=== PATIENT | male | born 1980 | race Caucasian/White ===

== ENCOUNTER 2024-08-25 11:19 | Emergency (ER) | payer BC, SELFPAY ==
--- NOTE | ~2024-08-25 | XR_ITS ---
XR chest 2V DATE: 08/25/2024 12:17 INDICATION: Cough and wheezing for 2 to 3 weeks TECHNIQUE: PA and lateral views COMPARISON: None FINDINGS: Normal heart size. No hilar or mediastinal enlargement. Bilateral hyperinflation. No pulmonary infiltrate or consolidation, pleural effusion or pulmonary vascular congestion or pneumo thorax is detected. Included skeletal structures are unremarkable other than old healed anterolateral right third and fif th rib fracture deformities. IMPRESSION: Bilateral hyperinflation; otherwise no active cardiopulmonary disease Reviewed, dictated and finalized at location A. [employer] IMPRESSION: Bilateral hyperinflation; otherwise no active cardiopulmonary disea se
--- NOTE | 2024-08-25 11:31 | ED.GENADULT ---
HPI - General Adult General Chief complaint: Upper Respiratory Infection Stated complaint: chest congestion Time Seen by Provider: 08/25/24 11:31 Source: patient Mode of arrival: ambulatory Limitations: no limitations History of Present Illness HPI narrative: 43-year-old male patient presents to the [facility] with complaints of a cough for the last 2-3 weeks. Patient states he feels like he has been coughing so hard that he has been having some lateral chest pain on inspiration with breathing. Patient states that he did wake up last week with some night sweats and chills and feels like he was running a fever but never took his temperature. Patient denies any ear pain or sore throat at this time. Patient states he has had some shortness of breath at times no current Midsternal chest pain at this time. patient states he has been taking some [id number] DayQuil and NyQuil for his symptoms. Related Data Home Medications ?Medication ?Instructions ?Recorded ?Confirmed ?Last Taken ?Type No Home Medications 08/25/24 08/25/24 Unknown History Allergies Allergy/AdvReac Type Severity Reaction Status Date / Time No Known Allergies Allergy Verified 08/25/24 11:39 Review of Systems Review of Systems: CONSTITUTIONAL: Positive fever, chills, and sweats. EYES: Denies visual changes, redness, or discharge. ENT: Denies rhinorrhea, congestion, sore throat, or otalgia. CARDIOVASCULAR: positive lateral chest pain, denies palpitations, or edema. RESPIRATORY: positive cough with intermittent dyspnea. GASTROINTESTINAL: Denies abdominal pain, nausea, vomiting, or diarrhea. GENITOURINARY: Denies dysuria or hematuria. SKIN: Denies rash or itching. MUSCULOSKELETAL: Denies back pain, joint pain, or myalgia. NEUROLOGIC: Denies headache, numbness, or weakness. PSYCHIATRIC: Denies anxiety or depression. [facility] Past Medical History Medical History (Updated 08/25/24 @ 12:48 by MAHESH Mcfarlane) Fracture of thumb, left, closed Family History Family History Mother Family history of diabetes mellitus in first degree relative Other Diabetes mellitus Comments At the time of my signature I agree with nursing past medical history, surgical, social, and family history. There is no relevant family history pertinent to the presenting complaint. Exam Narrative: GENERAL: Well-appearing, well-nourished, and in no acute distress. HEAD: Normocephalic, atraumatic. EYES: PERRLA and EOMI. ENT: Nares clear, no rhinorrhea or epistaxis. Mucous membranes moist. posterior pharynx with no erythema, tonsillar enlargement, exudates or lesions present. Bilateral TMs are clear there are some cerumen noted to bilateral canals. NECK: Supple. No lymphadenopathy CHEST: Patient does have some inspiratory wheezing noted to bilateral lower lobes. No respiratory distress. patient able talk clear complete sentences no tripoding noted. HEART: Regular rate and rhythm. No murmur heard. Normal peripheral pulses. ABDOMEN: Soft, nontender, nondistended, normal active bowel sounds. EXTREMITIES: Normal range of motion. No edema. SKIN: Warm, dry, no rash. NEURO: No focal deficits. Alert and oriented x3. Course Course Level of Care: Express Care Visit Reevaluation(s) Reevaluation #1: re-evaluated patient after breathing treatment. Patient's lungs are clear to bilateral upper lower lobes. Patient states he coughed a few times after the treatment but does feel like he can take a bigger deeper breath. Discussed with patient that his x-rays negative for any acute pneumonia we will discharge him home with oral steroids, inhaler and Tessalon Perles for the cough and highly encourage that he tries to quit smoking. Patient verbalized understanding denies any other questions or concerns at this time. Date: 08/25/24 Time: 12:52 Vital Signs Vital signs: Vital Signs Temperature 37.1 C 08/25/24 11:44 Pulse Rate 98 08/25/24 11:44 Respiratory Rate 16 08/25/24 11:44 Blood Pressure 126/80 08/25/24 11:44 Pulse Oximetry 98 08/25/24 11:44 Oxygen Delivery Room Air 08/25/24 11:44 Temperature 37.1 C 08/25/24 11:44 Pulse Rate 102 H 08/25/24 12:35 Respiratory Rate 20 08/25/24 12:35 Blood Pressure 126/80 08/25/24 11:44 Pulse Oximetry 98 08/25/24 12:35 Oxygen Delivery Room Air 08/25/24 11:44 Medical Decision Making [facility] Narrative Medical decision making narrative: Plan care for patient is to x-ray the chest to rule out any since he has been reporting night sweats and possible low-grade fevers. We will also provide him a breathing treatment to help with the bilateral lower lobe wheezing to see if this improves Differential Diagnosis Differential Diagnosis: differential diagnosis: Allergic rhinitis, chronic sinusitis, tonsillitis, acute sinusitis, infectious mononucleosis, seasonal influenza, pertussis, diphtheria, meningococcal disease, viral syndrome, viral bronchitis, RSV, COVID-19 Vital Signs Vital Signs: Vital Signs Temperature 37.1 C 08/25/24 11:44 Pulse Rate 98 08/25/24 11:44 Respiratory Rate 16 08/25/24 11:44 Blood Pressure 126/80 08/25/24 11:44 Pulse Oximetry 98 08/25/24 11:44 Oxygen Delivery Room Air 08/25/24 11:44 Temperature 37.1 C 08/25/24 11:44 Pulse Rate 102 H 08/25/24 12:35 Respiratory Rate 20 08/25/24 12:35 Blood Pressure 126/80 08/25/24 11:44 Pulse Oximetry 98 08/25/24 12:35 Oxygen Delivery Room Air 08/25/24 11:44 Imaging Data Radiologist's impression: [place] [address] XRay Report Signed Patient: Db Feliz : 1980 MR#: [id number] Age: 43 Acct:[id number] Loc: [facility] ADM Date: 08/25/24Attending Dr: Ordering Physician: Cathi Lindsey APRN Date of Service: 08/25/24 Procedure(s): XR chest 2V Accession Number(s): [id number] cc: [employer] FI[employer] CONSULTANT PHYSICIAN; Cathi Lindsey APRN~ XR chest 2V DATE: 08/25/2024 12:17 INDICATION: Cough and wheezing for 2 to 3 weeks TECHNIQUE: PA and lateral views COMPARISON: None FINDINGS: Normal heart size. No hilar or mediastinal enlargement. Bilateral hyperinflation. No pulmonary infiltrate or consolidation, pleural effusion or pulmonary vascular congestion or pneumothorax is detected. Included skeletal structures are unremarkable other than old healed anterolateral right third and fifth rib fracture deformities. IMPRESSION: Bilateral hyperinflation; otherwise no active cardiopulmonary disease Reviewed, dictated and finalized at location A. SUR[employer]ING INSTRUCTOR Please be advised this is a medical document. It is intended for [id number] communication. It is written in medical language and may contain unfamiliar abbreviations or verbiage. Medical documents are intended to carry relevant information, facts as evident, and the clinical opinion of the practitioner at the time of the encounter. This report may have been done utilizing a voice recognition system. Attempts have been made to correct errors. However, there may be uncorrected grammatical, spelling, and recognition errors present. The file time of this note does not necessarily represent the time the patient was seen. Dictated By: Kang Rowell MD 08/25/24 1241 Signed By: <Electronically signed by Kang Rowell MD in OV> Discharge Plan Discharge Clinical Impression: Bronchitis, Viral URI with cough Patient Disposition: Home, Self-Care Condition: Stable Instructions: Antibiotic Form, Acute Bronchitis (ED) Additional Instructions: Viral illness may last between 7-12days; antibiotic is NOT recommended at this time. Recommend antihistamine such as Benadryl at night time and Claritin/Zyrtec/Pam during the day Cough syrup may cause drowsiness; avoid driving or take it at night time. Use inhaler as needed for cough, wheezing, shortness of breath or chest tightness. Also, recommend symptomatic treatment includes: rest, fluids, and increase humidity of the air at home. Recommend Acetaminophen or nonsteroidal anti-inflammatory agents (NSAIDs) as directed in the bottle to reduce fever and/pain/headache. Avoid smoking/second-hand smoke. Limit visits to areas with large crowds. Please schedule a follow-up visit with your personal physician for further evaluation and treatment within 3-5days. Including recheck and discussion of your blood pressure. If your symptoms persist, change or worsen significantly before you can contact your personal physician then please, without delay, go to the emergency department for further evaluation. Patient Language: [place] Prescriptions: New benzonatate 200 mg capsule 200 mg PO TID PRN (Reason: cough) 10 Days Qty: 30 0RF prednisone 20 mg tablet 40 mg PO DAILY 5 Days Qty: 10 0RF albuterol sulfate [Ventolin HFA] 90 mcg/actuation HFA aerosol inhaler 2 puff INHALATION .Q4 hours PRN (Reason: cough) Qty: 18 0RF No Action No Home Medications Follow-up/Referrals: PHYSICIAN,FRANCHISE FIELD CONSULTANT [Primary Care Provider] - Time of Disposition: 12:49
[2024-08-25 11:44] VITALS: BP 126/80; PULSE 98; RESP 16; TEMP 37.1; O2SAT 98
[2024-08-25 12:15] VITALS: PULSE 92; RESP 18; O2SAT 98
[2024-08-25] MEDS: IPRATROPIUM 0.5 MG/ALBUTEROL SULFATE 2.5 MG AMPUL.NEB 3 ML INHALATION (12:20)
[2024-08-25 12:35] VITALS: PULSE 102; RESP 20; O2SAT 98
== END 2024-08-25 12:51 | disposition home or self-care (01) ==
PROVIDERS: Emergency Provider Nurse Practitioner Family; Referring Provider Emergency Medicine
DX: J40 Bronchitis, not specified as acute or chronic (principal); J06.9 Acute upper respiratory infection, unspecified
CPT/HCPCS: 71046; 94640; 99213; G0463

== ENCOUNTER 2025-02-24 13:27 | Inpatient (IN) | payer BC, MEDICAID, SELFPAY ==
[2025-02-24] VITALS (14 sets, daily range): BP systolic 96–134; BP diastolic 64–95; PULSE 99–116; RESP 12–28; TEMP 36.8; O2SAT 94–99
--- NOTE | ~2025-02-24 | CT_ITS ---
EXAMINATION: CT abdomen pelvis w con DATE: 02/24/2025 16:14 INDICATION: abdominal pain TECHNIQUE: Computed tomography (CT) of the abdomen and pelvis was performed with 100 mL Omnipaque-350 intravenous contrast. Automated exposure control and iterative reconstruction technique were employe d. The dose-length product was 325.52 mGy-cm. COMPARISON: None. FINDINGS: Lower thorax: Bilateral dependent atelectasis/scar. Liver: Nodular liver border. Multiple heterogeneous liver lesions with capsular versus thin rim enhan cement, measuring up to 5.5 cm. Apparent tumor invasion and small adjacent thrombus in the right port al vein branches extending to the junction with the right main portal vein. Biliary/Gallbladder: Pericholecystic fluid, nonspecific finding in the setting of liver disease. No s tones. No bile duct dilation. Pancreas: No mass or duct dilation. Spleen: Normal. Adrenals:No mass. Kidneys: No suspicious mass, obstructing stone, or hydronephrosis. Subcentimeter bilateral hypodensit ies, too small to characterize but most likely represent cysts. GI tract: Moderate distal esophageal wall thickening. Mild gastric wall edema. No small or large briseyda l dilation. Normal appendix. Diverticulosis without diverticulitis. Mesentery/Peritoneum: Moderate volume simple ascitic fluid. No free air or mass is detected. Retroperitoneum: No mass. Pelvis: Pelvic organs are within normal limits. Soft Tissues: Small fat and fluid containing umbilical hernia. Bones: No acute osseous finding. IMPRESSION: Cirrhosis. Multiple liver lesions concerning for malignancy. Likely tumor invasion in the right leland l vein branches with small focus of portal vein thrombus. Esophagitis/gastritis. Moderate volume asci stuart. Reviewed, dictated and finalized at location K. IMPRESSION: Cirrhosis. Multiple liver lesions concerning for malignancy. Likely tumor invas ion in the right portal vein branches with small focus of portal vein thrombus. Esophagitis/gastritis. Moderate volume ascites.
--- NOTE | ~2025-02-24 | MR_ITS ---
MRI of the abdomen: Clinical indication: Liver mass Technique: Coronal SSFSE ARC, WATER:coronal LAVA-FLEX, Coronal 2D FIESTA FatSat, Axial SSFSE BH ARC, Axial 3D DualEcho BH, Axial SSFSE-IR, Axial DWI b=500, Axial 2D FIESTA FatSat, pre and dynamic postco ntrast Axial LAVA ARC, postcontrast Coronal In and Opposed phase LAVA FLEX. Following intravenous adm inistration of 12 cc MultiHance gadolinium, T1-weighted fat-sat imaging was performed in the axial an d coronal planes. Comparison made with prior CT scan is dated 02/24/2025. Findings: There is background diffuse nodular contour of the liver, compatible with cirrhotic change. There is an irregular/lobulated mass towards the dome of liver measuring up to approximately 7.6 x 5 .0 x 6.8 cm in overall extent, with focal direct extension into the right portal vein. Lesion is curr ently T2 isointense with focal hyperintensity, and mildly T1 hypointense. There is no no definite cla ssic hypervascular enhancement pattern, but more heterogeneous hypoenhancement overall, however given cirrhotic morphology, hepatocellular carcinoma remains in the differential diagnosis. Gallbladder demonstrates mild wall thickening but no evidence of gallstone. Spleen, pancreas, adrenal glands, and kidneys are unremarkable. No lymphadenopathy seen. No aortic aneurysm. There is moderate to large amount of ascites in the abdomen/pelvis. Impression: 7.6 x 5.0 x 6.8 cm irregular mass in the liver with direct invasion/extension into the right portal v ein (compatible with tumor thrombus). This is suspicious for hepatocellular carcinoma given backgroun d cirrhotic change of the liver versus other neoplastic disease. Consider tissue sampling. Correlate with serum alpha-fetoprotein level. Moderate to large amount of abdominopelvic ascites. Gallbladder wall thickening is probably reactive due to the presence of ascites. Reviewed, dictated and finalized at location . Impression: 7.6 x 5.0 x 6.8 cm irregular mass in the liver with direct invasion/extension i nto the right portal vein (compatible with tumor thrombus). This is suspicious for hepatocellular carcinoma given background cirrhotic change of the liver britton yuniel other neoplastic disease. Consider tissue sampling. Correlate with serum al pha-fetoprotein level. Moderate to large amount of abdominopelvic ascites. Gallbladder wall thickening is probably reactive due to the presence of ascites .
--- NOTE | ~2025-02-24 | US_ITS ---
ULTRASOUND-GUIDED PARACENTESIS INDICATION: Ascites. COMPARISON: Reference is made to an MRI examination of the abdomen performed on 02/28/2025. TECHNIQUE/FINDINGS: All risks, benefits, and alternatives of this procedure were thoroughly discussed with the patient an d all questions were answered. The time out procedure was performed and the patient was properly shantell ntified. Sonographic evaluation of the abdomen demonstrated scattered intra-abdominal ascites, with the larges t pocket in the right mid to lower abdomen. Following local analgesia with 1% lidocaine, a centesis catheter was inserted into the right peritone al cavity, and the needle was removed. 650cc of tea-colored fluid was collected for analysis. The abd omen was drained in its entirety. The catheter was then removed and a sterile dressing applied. The p atient tolerated the procedure without difficulty and was returned to the floor in stable condition. Limited ultrasound examination of the portal vein demonstrated not only reversal of flow, but early c avernous transformation. The mass detected on CT and MRI examination was not visualized on the curren t study, secondary to its subdiaphragmatic location. Impression: 1. Technically successful ultrasound guided right sided paracentesis yielding 650 cc of tea-colored ascites, which was sent for the requested studies. 2. No immediate complications. Reviewed, dictated and finalized at location A. Impression: 1. Technically successful ultrasound guided right sided paracentesis yielding 650 cc of tea-colored ascites, which was sent for the requested studies. 2. No immediate complications.
--- NOTE | ~2025-02-24 | US_ITS ---
Abdominal Sonogram: Real-time sonographic imaging of the abdomen was performed. 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 Hypoechoic mass toward s the dome the liver measures approximately 6.0 x 4.0 x 5.0 cm. No definite evidence for cavernous tr ansformation of the portal vein, but there is reversal the normal direction of flow. The spleen is up per limits of normal in size without evidence of focal lesion. The gallbladder is well distended, an d demonstrates diffuse gallbladder wall thickening without evidence of gallstone. The common bile quan t is not well seen. The visualized pancreas, aorta, and IVC are unremarkable. The right kidney yao ures 11.1 cm in length and the left kidney measures 11.9 cm. There is no hydronephrosis or renal seven culus. Moderate to large amount of abdominal ascites present. Impression: Cirrhotic liver with 6.0 x 4.0 x 5.0 cm hypoechoic mass towards the dome, compatible with hepatocellu lar carcinoma versus other neoplastic lesion. Reversal of normal direction of flow in the main portal vein. Gallbladder wall thickening is probably related to the presence of moderate to large amount of abdomi nal ascites. No gallstone evident. Reviewed, dictated and finalized at location . Impression: Cirrhotic liver with 6.0 x 4.0 x 5.0 cm hypoechoic mass towards the dome, bonita tible with hepatocellular carcinoma versus other neoplastic lesion. Reversal of normal direction of flow in the main portal vein. Gallbladder wall thickening is probably related to the presence of moderate to large amount of abdominal ascites. No gallstone evident.
--- NOTE | 2025-02-24 15:26 | ED_ITS ---
HPI - General Adult General Chief complaint: Abdominal Pain <Yaz Bender - Last Filed: 02/24/25 19:21> Stated complaint: abd issues <Yaz Sam December, - Last Filed: 02/24/25 19:21> Time Seen by Provider: 02/24/25 14:56 <Yaz Sam December, - Last Filed: 02/24/25 19:21> History of Present Illness HPI narrative: Db Feliz is a 44 y/o male who presents today with reports of feeling like his umbilical hernia is pushing out more then normal, he states that he has had some mild lower umbilical cramping over the past week or so. Denies nausea/vomiting/ denies testicular pain. States he is eating and drinking well. Reports hx of Hep C. Last normal BM was yesterday <Yaz Sam December,N - Last Filed: 02/24/25 19:21> Related Data Home medications: Home Medications ?Medication ?Instructions ?Recorded ?Confirmed ?Last Taken ?Type No Home Medications 08/25/24 08/25/24 Unknown History <Yaz Sam December, - Last Filed: 02/24/25 19:21> Allergies/adverse reactions: Allergies Allergy/AdvReac Type Severity Reaction Status Date / Time No Known Allergies Allergy Verified 02/24/25 13:35 <Yaz Sam December, - Last Filed: 02/24/25 19:21> Review of Systems 2 Review of Systems: All systems reviewed & are unremarkable except as noted in HPI and below <Yaz Sam December, - Last Filed: 02/24/25 19:21> PMFSH Past Medical History Medical History: Medical History Fracture of thumb, left, closed <Yaz Sam December,N - Last Filed: 02/24/25 19:21> Family History Family History: Family History Mother Family history of diabetes mellitus in first degree relative Other Diabetes mellitus <Yaz Bender, DIESEL MAINTENANCE TECHNICIAN - Last Filed: 02/24/25 19:21> Exam 2 Narrative: GENERAL: Well-appearing, well-nourished, and in no acute distress. HEAD: Normocephalic, atraumatic. EYES: PERRLA and EOMI. ENT: Nares clear, no rhinorrhea or epistaxis. Mucous membranes moist. Oropharynx without tonsillar hypertrophy exudate or other lesions. NECK: Supple. No adenopathy or masses. No carotid bruits or JVD CHEST: Clear to auscultation. No respiratory distress. No wheezes rales or rhonchi HEART: Regular rate and rhythm. No murmur heard. Normal peripheral pulses. ABDOMEN: Distended, bowel sounds present no real tenderness with palpation EXTREMITIES: Normal range of motion. No edema. SKIN: Warm, dry, no rash. NEURO: No focal deficits. Alert and oriented x3. PSYCH: Normal mood and affect. <Yaz Bender APRN - Last Filed: 02/24/25 19:21> Course Course Emergency Course: Patient signed out to ut pending transfer to [facility]. No events during my shift. Patient handed off to Dr. Wise pending bed assignment. <Elizabeth Mustafa PA-C - Last Filed: 02/25/25 01:45> Patient signed out to ut pending transfer to [facility]. No events during my shift. Patient handed off to Dr. Wise pending bed assignment. 0: Dr Temple: Patient care transitioned over to ut by previous provider at 7:00 p.m. 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 Patient remains hemodynamically stable without any acute concerns here during the duration of my shift. Patient care signed over to oncoming ER physician Dr. Phelan at 7:00 a.m. pending bed assignment and transfer to [facility]. 02/27: Patient care assumed from previous provider still pending bed assignment at [facility]. Patient remains hemodynamically stable with no acute changes in clinical status. Patient care signed over to oncoming ER physician pending transfer. <Johnny Temple MD - Last Filed: 02/27/25 06:53> ELECTRICAL HARDWARE ENGINEER/PA Physician Supervision I agree with midlevel documentation; I performed the medical decision making component of this evaluation. Patient with new dx likely HCC from known HCV, GI here recommends tfr to tertiary care, [facility] hepatology/hospitalist accept pending bed. <Sue Trivedi MD - Last Filed: 02/25/25 09:15> Vital Signs Vital signs: Vital Signs Temperature 36.8 C 02/24/25 13:32 Pulse Rate 116 H 02/24/25 13:32 Respiratory Rate 20 02/24/25 13:32 Blood Pressure 123/85 02/24/25 13:32 Pulse Oximetry 99 02/24/25 13:32 Oxygen Delivery Room Air 02/24/25 13:32 Temperature 36.7 C 02/26/25 17:04 Pulse Rate 90 02/27/25 04:22 Respiratory Rate 16 02/27/25 04:22 Blood Pressure 99/62 L 02/27/25 04:22 Pulse Oximetry 99 02/27/25 04:22 Oxygen Delivery Room Air 02/24/25 13:32 <Yaz Bender APRN - Last Filed: 02/24/25 19:21> Vital Signs Temperature 36.8 C 02/24/25 13:32 Pulse Rate 116 H 02/24/25 13:32 Respiratory Rate 20 02/24/25 13:32 Blood Pressure 123/85 02/24/25 13:32 Pulse Oximetry 99 02/24/25 13:32 Oxygen Delivery Room Air 02/24/25 13:32 Temperature 36.7 C 02/26/25 17:04 Pulse Rate 90 02/27/25 04:22 Respiratory Rate 16 02/27/25 04:22 Blood Pressure 99/62 L 02/27/25 04:22 Pulse Oximetry 99 02/27/25 04:22 Oxygen Delivery Room Air 02/24/25 13:32 <Elizabeth Mustafa PA-C - Last Filed: 02/25/25 01:45> Vital Signs Temperature 36.8 C 02/24/25 13:32 Pulse Rate 116 H 02/24/25 13:32 Respiratory Rate 20 02/24/25 13:32 Blood Pressure 123/85 02/24/25 13:32 Pulse Oximetry 99 02/24/25 13:32 Oxygen Delivery Room Air 02/24/25 13:32 Temperature 36.7 C 02/26/25 17:04 Pulse Rate 90 02/27/25 04:22 Respiratory Rate 16 02/27/25 04:22 Blood Pressure 99/62 L 02/27/25 04:22 Pulse Oximetry 99 02/27/25 04:22 Oxygen Delivery Room Air 02/24/25 13:32 <Tino Wise MD - Last Filed: 02/25/25 06:58> Vital Signs Temperature 36.8 C 02/24/25 13:32 Pulse Rate 116 H 02/24/25 13:32 Respiratory Rate 20 02/24/25 13:32 Blood Pressure 123/85 02/24/25 13:32 Pulse Oximetry 99 02/24/25 13:32 Oxygen Delivery Room Air 02/24/25 13:32 Temperature 36.7 C 02/26/25 17:04 Pulse Rate 90 02/27/25 04:22 Respiratory Rate 16 02/27/25 04:22 Blood Pressure 99/62 L 02/27/25 04:22 Pulse Oximetry 99 02/27/25 04:22 Oxygen Delivery Room Air 02/24/25 13:32 <Sue Trivedi MD - Last Filed: 02/25/25 09:15> Vital Signs Temperature 36.8 C 02/24/25 13:32 Pulse Rate 116 H 02/24/25 13:32 Respiratory Rate 20 02/24/25 13:32 Blood Pressure 123/85 02/24/25 13:32 Pulse Oximetry 99 02/24/25 13:32 Oxygen Delivery Room Air 02/24/25 13:32 Temperature 36.7 C 02/26/25 17:04 Pulse Rate 90 02/27/25 04:22 Respiratory Rate 16 02/27/25 04:22 Blood Pressure 99/62 L 02/27/25 04:22 Pulse Oximetry 99 02/27/25 04:22 Oxygen Delivery Room Air 02/24/25 13:32 <Johnny Temple MD - Last Filed: 02/27/25 06:53> Medical Decision Making MDM Narrative Medical decision making narrative: 44 year old presents today with complaints of feeling that his umbilical hernia is sticking out more than normal denies any fevers or chills denies nausea vomiting states he is having normal bowel movements denies changes to urination no testicular pain. He also states he is having some more lower abdominal cramping that he normally does. On exam he has some abdominal distention that is present patient states that this is his normal abdomen and that it does usually look large and sticks out does not feel like it is any larger then his normal No real pain with palpation + bowel sounds CBC-no leukocytosis, hemodynamically stable CMP-sodium 136, BUN 6, creatinine 0.70, total bilirubin 1.7 normal, AST 161, ALT 140, alk phos 176, total protein 9.5 PT 16.4 INR 1.3 PTT 33.9 UA-trace ketones MELD score 11 CT abdomen pelvis-Cirrhosis. Multiple liver lesions concerning for malignancy. 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 Esophagitis/gastritis. Moderate volume ascites. Patient updated on labs and imaging findings, I let them know that I will consult with our GI specialist here for further direction of what we need to do. Consult with our GI specialist Dr. Leonard here who based on the CT findings he is recommending patient be transferred to a hospital with hepatology such as [facility] Spoke to Side Panel Padder Dr. Palacios at 17:45 at [facility] who recommends transferring pt for further work up and recommends admitting to Medicine hospitalist, waiting for a call back Spoke to go hospitalist at [facility] Dr. Heath who accepts patient for transfer with hepatology consult. Transfer line states that it might be 1-2 days before the bed is available I discussed this with the patient and his mom, pt has a lot of strong emotions and at first is wanting to leave and he will figure out when he wants to follow up, he and his mom discussed more in private and they have have decided to stay and wait for the admission bed at [facility] Patient is wanting to go outside to smoke and pt is informed that he cannot smoke and will give him a nicotine patch and provide him with a 0.5 mg dose of PO Ativan while he waits Handed pt off to Elisabeth Mustafa pending admission bed at [facility] <Yaz Bender, DIESEL MAINTENANCE TECHNICIAN - Last Filed: 02/24/25 19:21> 44 year old presents today with complaints of feeling that his umbilical hernia is sticking out more than normal denies any fevers or chills denies nausea vomiting states he is having normal bowel movements denies changes to urination no testicular pain. He also states he is having some more lower abdominal cramping that he normally does. On exam he has some abdominal distention that is present patient states that this is his normal abdomen and that it does usually look large and sticks out does not feel like it is any larger then his normal No real pain with palpation + bowel sounds CBC-no leukocytosis, hemodynamically stable CMP-sodium 136, BUN 6, creatinine 0.70, total bilirubin 1.7 normal, AST 161, ALT 140, alk phos 176, total protein 9.5 PT 16.4 INR 1.3 PTT 33.9 UA-trace ketones MELD score 11 CT abdomen pelvis-Cirrhosis. Multiple liver lesions concerning for malignancy. 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 Esophagitis/gastritis. Moderate volume ascites. Patient updated on labs and imaging findings, I let them know that I will consult with our GI specialist here for further direction of what we need to do. Consult with our GI specialist Dr. Leonard here who based on the CT findings he is recommending patient be transferred to a hospital with hepatology such as [facility] Spoke to Side Panel Padder Dr. Palacios at 17:45 at [facility] who recommends transferring pt for further work up and recommends admitting to Medicine hospitalist, waiting for a call back Spoke to go hospitalist at [facility] Dr. Heath who accepts patient for transfer with hepatology consult. Transfer line states that it might be 1-2 days before the bed is available I discussed this with the patient and his mom, pt has a lot of strong emotions and at first is wanting to leave and he will figure out when he wants to follow up, he and his mom discussed more in private and they have have decided to stay and wait for the admission bed at [facility] Patient is wanting to go outside to smoke and pt is informed that he cannot smoke and will give him a nicotine patch and provide him with a 0.5 mg dose of PO Ativan while he waits Handed pt off to Elisabeth Mustafa pending admission bed at [facility]. Patient signed out to me pending transfer at [facility]. Patient resting comfortably. Did call nick for an update, patient is 19. On the wait list for a bed. <Tino Wise MD - Last Filed: 02/25/25 06:58> Medical Records Medical records reviewed: Yes I reviewed the external patient's medical records. <Yaz Bender, DIESEL MAINTENANCE TECHNICIAN - Last Filed: 02/24/25 19:21> Vital Signs Vital Signs: Vital Signs Temperature 36.8 C 02/24/25 13:32 Pulse Rate 116 H 02/24/25 13:32 Respiratory Rate 20 02/24/25 13:32 Blood Pressure 123/85 02/24/25 13:32 Pulse Oximetry 99 02/24/25 13:32 Oxygen Delivery Room Air 02/24/25 13:32 Temperature 36.7 C 02/26/25 17:04 Pulse Rate 90 02/27/25 04:22 Respiratory Rate 16 02/27/25 04:22 Blood Pressure 99/62 L 02/27/25 04:22 Pulse Oximetry 99 02/27/25 04:22 Oxygen Delivery Room Air 02/24/25 13:32 Vitals reviewed by ut <Yaz Bender, DIESEL MAINTENANCE TECHNICIAN - Last Filed: 02/24/25 19:21> Vital Signs Temperature 36.8 C 02/24/25 13:32 Pulse Rate 116 H 02/24/25 13:32 Respiratory Rate 20 02/24/25 13:32 Blood Pressure 123/85 02/24/25 13:32 Pulse Oximetry 99 02/24/25 13:32 Oxygen Delivery Room Air 02/24/25 13:32 Temperature 36.7 C 02/26/25 17:04 Pulse Rate 90 02/27/25 04:22 Respiratory Rate 16 02/27/25 04:22 Blood Pressure 99/62 L 02/27/25 04:22 Pulse Oximetry 99 02/27/25 04:22 Oxygen Delivery Room Air 02/24/25 13:32 <Elizabeth Mustafa PA-C - Last Filed: 02/25/25 01:45> Vital Signs Temperature 36.8 C 02/24/25 13:32 Pulse Rate 116 H 02/24/25 13:32 Respiratory Rate 20 02/24/25 13:32 Blood Pressure 123/85 02/24/25 13:32 Pulse Oximetry 99 02/24/25 13:32 Oxygen Delivery Room Air 02/24/25 13:32 Temperature 36.7 C 02/26/25 17:04 Pulse Rate 90 02/27/25 04:22 Respiratory Rate 16 02/27/25 04:22 Blood Pressure 99/62 L 02/27/25 04:22 Pulse Oximetry 99 02/27/25 04:22 Oxygen Delivery Room Air 02/24/25 13:32 <Tino Wise MD - Last Filed: 02/25/25 06:58> Vital Signs Temperature 36.8 C 02/24/25 13:32 Pulse Rate 116 H 02/24/25 13:32 Respiratory Rate 20 02/24/25 13:32 Blood Pressure 123/85 02/24/25 13:32 Pulse Oximetry 99 02/24/25 13:32 Oxygen Delivery Room Air 02/24/25 13:32 Temperature 36.7 C 02/26/25 17:04 Pulse Rate 90 02/27/25 04:22 Respiratory Rate 16 02/27/25 04:22 Blood Pressure 99/62 L 02/27/25 04:22 Pulse Oximetry 99 02/27/25 04:22 Oxygen Delivery Room Air 02/24/25 13:32 <Sue Trivedi MD - Last Filed: 02/25/25 09:15> Vital Signs Temperature 36.8 C 02/24/25 13:32 Pulse Rate 116 H 02/24/25 13:32 Respiratory Rate 20 02/24/25 13:32 Blood Pressure 123/85 02/24/25 13:32 Pulse Oximetry 99 02/24/25 13:32 Oxygen Delivery Room Air 02/24/25 13:32 Temperature 36.7 C 02/26/25 17:04 Pulse Rate 90 02/27/25 04:22 Respiratory Rate 16 02/27/25 04:22 Blood Pressure 99/62 L 02/27/25 04:22 Pulse Oximetry 99 02/27/25 04:22 Oxygen Delivery Room Air 02/24/25 13:32 <Johnny Temple MD - Last Filed: 02/27/25 06:53> Lab Data Lab results reviewed: Yes I reviewed the patient's lab results. <Yaz Bender APRN - Last Filed: 02/24/25 19:21> Result diagrams: 02/24/25 15:40 02/24/25 16:05 <Yaz Bender DIESEL MAINTENANCE TECHNICIAN - Last Filed: 02/24/25 19:21> Labs: Lab Results 02/24/25 02/24/25 02/24/25 Range/Units 15:40 16:05 16:59 WBC 6.5 (4.5-10.0) K/mm3 RBC 4.38 L (4.6-6.20) M/mm3 Hgb 14.1 (14.0-18.0) g/dL Hct 42.8 (42.0-52.0) % MCV 97.7 (80-100) fl MCH 32.2 (26-34) pg MCHC 32.9 (32-36) g/dl RDW 14.2 (11.5-14.5) % Plt Count 97 L (150-375) k/mm3 MPV 11.8 H (7.4-10.4) fl Immature Gran % (Auto) 0.3 (0-0.5) % Neut % (Auto) 62.9 (45.5-73.1) % Lymph % (Auto) 25.7 (18.3-44.2) % [place] % (Auto) 7.2 (2.6-8.5) % Eos % (Auto) 3.1 (0-4.4) % Baso % (Auto) 0.8 (0.2-1.2) % Lymph # (Auto) 1.67 (0.9-3.2) K/mm3 [place] # (Auto) 0.5 (0.1-0.6) K/mm3 Eos # (Auto) 0.2 (0-0.3) K/mm3 Baso # (Auto) 0.1 (0.0-0.1) K/mm3 Abs Immat Gran (auto) 0.02 (0.00-0.031) K/mm3 Absolute Neuts (auto) 4.1 (1.3-6.7) K/mm3 Absolute Nucleated RBC 0.000 (0.0-0.012) K/mm3 Nucleated RBC % 0.0 (0.0-0.2) % % Immature Plt Fraction 7.7 (0.9-11.2) % PT 16.4 H (11.1-14.7) Seconds INR 1.3 APTT 33.9 (22.3-36.8) Seconds Sodium 136 L (137-145) mmol/L Potassium 3.8 (3.4-5.0) mmol/L Chloride 102 (98-107) mmol/L Carbon Dioxide 22 (22-30) mmol/L Anion Gap 12 (4-12) mmol/L BUN 6 L (9-20) mg/dL Creatinine 0.63 L 0.70 L (0.7-1.3) mg/dL Estim Creat Clear Calc 117 107 ml/min Estimated GFR > 60 > 60 (59 - ) Glucose 87 (65-110) mg/dL Calcium 8.8 (8.4-10.2) mg/dL Total Bilirubin 1.7 H (0.2-1.3) mg/dL Direct Bilirubin 0.0 (0-0.3) mg/dL AST 161 H (17-59) U/L ALT 140 H (6-50) U/L Alkaline Phosphatase 176 H (38-126) U/L Total Protein 9.5 H (6.3-8.2) g/dL Albumin 3.7 (3.5-5.1) g/dL Urine Color Yellow (Yellow) Urine Appearance Clear (Clear) Urine pH 6.5 (5.0-9.0) Ur Specific [place] > 1.045 H (1.001-1.035) Urine Protein Negative (Negative) mg/dL Urine Glucose (UA) Negative (Negative) mg/dL Urine Ketones Trace H (Negative) mg/dL Ur Blood (Man) Negative (Negative) Urine Nitrate Negative (Negative) Urine Bilirubin Negative (Negative) Urine Urobilinogen 1.0 (<2.0) mg/dL Leukocyte Esterase Rfl Negative (Negative) ANA/UL <Yaz Bender, DIESEL MAINTENANCE TECHNICIAN - Last Filed: 02/24/25 19:21> Lab Results 02/24/25 02/24/25 02/24/25 Range/Units 15:40 16:05 16:59 WBC 6.5 (4.5-10.0) K/mm3 RBC 4.38 L (4.6-6.20) M/mm3 Hgb 14.1 (14.0-18.0) g/dL Hct 42.8 (42.0-52.0) % MCV 97.7 (80-100) fl MCH 32.2 (26-34) pg MCHC 32.9 (32-36) g/dl RDW 14.2 (11.5-14.5) % Plt Count 97 L (150-375) k/mm3 MPV 11.8 H (7.4-10.4) fl Immature Gran % (Auto) 0.3 (0-0.5) % Neut % (Auto) 62.9 (45.5-73.1) % Lymph % (Auto) 25.7 (18.3-44.2) % [place] % (Auto) 7.2 (2.6-8.5) % Eos % (Auto) 3.1 (0-4.4) % Baso % (Auto) 0.8 (0.2-1.2) % Lymph # (Auto) 1.67 (0.9-3.2) K/mm3 [place] # (Auto) 0.5 (0.1-0.6) K/mm3 Eos # (Auto) 0.2 (0-0.3) K/mm3 Baso # (Auto) 0.1 (0.0-0.1) K/mm3 Abs Immat Gran (auto) 0.02 (0.00-0.031) K/mm3 Absolute Neuts (auto) 4.1 (1.3-6.7) K/mm3 Absolute Nucleated RBC 0.000 (0.0-0.012) K/mm3 Nucleated RBC % 0.0 (0.0-0.2) % % Immature Plt Fraction 7.7 (0.9-11.2) % PT 16.4 H (11.1-14.7) Seconds INR 1.3 APTT 33.9 (22.3-36.8) Seconds Sodium 136 L (137-145) mmol/L Potassium 3.8 (3.4-5.0) mmol/L Chloride 102 (98-107) mmol/L Carbon Dioxide 22 (22-30) mmol/L Anion Gap 12 (4-12) mmol/L BUN 6 L (9-20) mg/dL Creatinine 0.63 L 0.70 L (0.7-1.3) mg/dL Estim Creat Clear Calc 117 107 ml/min Estimated GFR > 60 > 60 (59 - ) Glucose 87 (65-110) mg/dL Calcium 8.8 (8.4-10.2) mg/dL Total Bilirubin 1.7 H (0.2-1.3) mg/dL Direct Bilirubin 0.0 (0-0.3) mg/dL AST 161 H (17-59) U/L ALT 140 H (6-50) U/L Alkaline Phosphatase 176 H (38-126) U/L Total Protein 9.5 H (6.3-8.2) g/dL Albumin 3.7 (3.5-5.1) g/dL Urine Color Yellow (Yellow) Urine Appearance Clear (Clear) Urine pH 6.5 (5.0-9.0) Ur Specific [place] > 1.045 H (1.001-1.035) Urine Protein Negative (Negative) mg/dL Urine Glucose (UA) Negative (Negative) mg/dL Urine Ketones Trace H (Negative) mg/dL Ur Blood (Man) Negative (Negative) Urine Nitrate Negative (Negative) Urine Bilirubin Negative (Negative) Urine Urobilinogen 1.0 (<2.0) mg/dL Leukocyte Esterase Rfl Negative (Negative) ANA/UL <Elizabeth Mustafa PA-C - Last Filed: 02/25/25 01:45> Lab Results 02/24/25 02/24/25 02/24/25 Range/Units 15:40 16:05 16:59 WBC 6.5 (4.5-10.0) K/mm3 RBC 4.38 L (4.6-6.20) M/mm3 Hgb 14.1 (14.0-18.0) g/dL Hct 42.8 (42.0-52.0) % MCV 97.7 (80-100) fl MCH 32.2 (26-34) pg MCHC 32.9 (32-36) g/dl RDW 14.2 (11.5-14.5) % Plt Count 97 L (150-375) k/mm3 MPV 11.8 H (7.4-10.4) fl Immature Gran % (Auto) 0.3 (0-0.5) % Neut % (Auto) 62.9 (45.5-73.1) % Lymph % (Auto) 25.7 (18.3-44.2) % [place] % (Auto) 7.2 (2.6-8.5) % Eos % (Auto) 3.1 (0-4.4) % Baso % (Auto) 0.8 (0.2-1.2) % Lymph # (Auto) 1.67 (0.9-3.2) K/mm3 [place] # (Auto) 0.5 (0.1-0.6) K/mm3 Eos # (Auto) 0.2 (0-0.3) K/mm3 Baso # (Auto) 0.1 (0.0-0.1) K/mm3 Abs Immat Gran (auto) 0.02 (0.00-0.031) K/mm3 Absolute Neuts (auto) 4.1 (1.3-6.7) K/mm3 Absolute Nucleated RBC 0.000 (0.0-0.012) K/mm3 Nucleated RBC % 0.0 (0.0-0.2) % % Immature Plt Fraction 7.7 (0.9-11.2) % PT 16.4 H (11.1-14.7) Seconds INR 1.3 APTT 33.9 (22.3-36.8) Seconds Sodium 136 L (137-145) mmol/L Potassium 3.8 (3.4-5.0) mmol/L Chloride 102 (98-107) mmol/L Carbon Dioxide 22 (22-30) mmol/L Anion Gap 12 (4-12) mmol/L BUN 6 L (9-20) mg/dL Creatinine 0.63 L 0.70 L (0.7-1.3) mg/dL Estim Creat Clear Calc 117 107 ml/min Estimated GFR > 60 > 60 (59 - ) Glucose 87 (65-110) mg/dL Calcium 8.8 (8.4-10.2) mg/dL Total Bilirubin 1.7 H (0.2-1.3) mg/dL Direct Bilirubin 0.0 (0-0.3) mg/dL AST 161 H (17-59) U/L ALT 140 H (6-50) U/L Alkaline Phosphatase 176 H (38-126) U/L Total Protein 9.5 H (6.3-8.2) g/dL Albumin 3.7 (3.5-5.1) g/dL Urine Color Yellow (Yellow) Urine Appearance Clear (Clear) Urine pH 6.5 (5.0-9.0) Ur Specific [place] > 1.045 H (1.001-1.035) Urine Protein Negative (Negative) mg/dL Urine Glucose (UA) Negative (Negative) mg/dL Urine Ketones Trace H (Negative) mg/dL Ur Blood (Man) Negative (Negative) Urine Nitrate Negative (Negative) Urine Bilirubin Negative (Negative) Urine Urobilinogen 1.0 (<2.0) mg/dL Leukocyte Esterase Rfl Negative (Negative) ANA/UL <Tino Wise MD - Last Filed: 02/25/25 06:58> Lab Results 02/24/25 02/24/25 02/24/25 Range/Units 15:40 16:05 16:59 WBC 6.5 (4.5-10.0) K/mm3 RBC 4.38 L (4.6-6.20) M/mm3 Hgb 14.1 (14.0-18.0) g/dL Hct 42.8 (42.0-52.0) % MCV 97.7 (80-100) fl MCH 32.2 (26-34) pg MCHC 32.9 (32-36) g/dl RDW 14.2 (11.5-14.5) % Plt Count 97 L (150-375) k/mm3 MPV 11.8 H (7.4-10.4) fl Immature Gran % (Auto) 0.3 (0-0.5) % Neut % (Auto) 62.9 (45.5-73.1) % Lymph % (Auto) 25.7 (18.3-44.2) % [place] % (Auto) 7.2 (2.6-8.5) % Eos % (Auto) 3.1 (0-4.4) % Baso % (Auto) 0.8 (0.2-1.2) % Lymph # (Auto) 1.67 (0.9-3.2) K/mm3 [place] # (Auto) 0.5 (0.1-0.6) K/mm3 Eos # (Auto) 0.2 (0-0.3) K/mm3 Baso # (Auto) 0.1 (0.0-0.1) K/mm3 Abs Immat Gran (auto) 0.02 (0.00-0.031) K/mm3 Absolute Neuts (auto) 4.1 (1.3-6.7) K/mm3 Absolute Nucleated RBC 0.000 (0.0-0.012) K/mm3 Nucleated RBC % 0.0 (0.0-0.2) % % Immature Plt Fraction 7.7 (0.9-11.2) % PT 16.4 H (11.1-14.7) Seconds INR 1.3 APTT 33.9 (22.3-36.8) Seconds Sodium 136 L (137-145) mmol/L Potassium 3.8 (3.4-5.0) mmol/L Chloride 102 (98-107) mmol/L Carbon Dioxide 22 (22-30) mmol/L Anion Gap 12 (4-12) mmol/L BUN 6 L (9-20) mg/dL Creatinine 0.63 L 0.70 L (0.7-1.3) mg/dL Estim Creat Clear Calc 117 107 ml/min Estimated GFR > 60 > 60 (59 - ) Glucose 87 (65-110) mg/dL Calcium 8.8 (8.4-10.2) mg/dL Total Bilirubin 1.7 H (0.2-1.3) mg/dL Direct Bilirubin 0.0 (0-0.3) mg/dL AST 161 H (17-59) U/L ALT 140 H (6-50) U/L Alkaline Phosphatase 176 H (38-126) U/L Total Protein 9.5 H (6.3-8.2) g/dL Albumin 3.7 (3.5-5.1) g/dL Urine Color Yellow (Yellow) Urine Appearance Clear (Clear) Urine pH 6.5 (5.0-9.0) Ur Specific [place] > 1.045 H (1.001-1.035) Urine Protein Negative (Negative) mg/dL Urine Glucose (UA) Negative (Negative) mg/dL Urine Ketones Trace H (Negative) mg/dL Ur Blood (Man) Negative (Negative) Urine Nitrate Negative (Negative) Urine Bilirubin Negative (Negative) Urine Urobilinogen 1.0 (<2.0) mg/dL Leukocyte Esterase Rfl Negative (Negative) ANA/UL <Sue Trivedi MD - Last Filed: 02/25/25 09:15> Lab Results 02/24/25 02/24/25 02/24/25 Range/Units 15:40 16:05 16:59 WBC 6.5 (4.5-10.0) K/mm3 RBC 4.38 L (4.6-6.20) M/mm3 Hgb 14.1 (14.0-18.0) g/dL Hct 42.8 (42.0-52.0) % MCV 97.7 (80-100) fl MCH 32.2 (26-34) pg MCHC 32.9 (32-36) g/dl RDW 14.2 (11.5-14.5) % Plt Count 97 L (150-375) k/mm3 MPV 11.8 H (7.4-10.4) fl Immature Gran % (Auto) 0.3 (0-0.5) % Neut % (Auto) 62.9 (45.5-73.1) % Lymph % (Auto) 25.7 (18.3-44.2) % [place] % (Auto) 7.2 (2.6-8.5) % Eos % (Auto) 3.1 (0-4.4) % Baso % (Auto) 0.8 (0.2-1.2) % Lymph # (Auto) 1.67 (0.9-3.2) K/mm3 [place] # (Auto) 0.5 (0.1-0.6) K/mm3 Eos # (Auto) 0.2 (0-0.3) K/mm3 Baso # (Auto) 0.1 (0.0-0.1) K/mm3 Abs Immat Gran (auto) 0.02 (0.00-0.031) K/mm3 Absolute Neuts (auto) 4.1 (1.3-6.7) K/mm3 Absolute Nucleated RBC 0.000 (0.0-0.012) K/mm3 Nucleated RBC % 0.0 (0.0-0.2) % % Immature Plt Fraction 7.7 (0.9-11.2) % PT 16.4 H (11.1-14.7) Seconds INR 1.3 APTT 33.9 (22.3-36.8) Seconds Sodium 136 L (137-145) mmol/L Potassium 3.8 (3.4-5.0) mmol/L Chloride 102 (98-107) mmol/L Carbon Dioxide 22 (22-30) mmol/L Anion Gap 12 (4-12) mmol/L BUN 6 L (9-20) mg/dL Creatinine 0.63 L 0.70 L (0.7-1.3) mg/dL Estim Creat Clear Calc 117 107 ml/min Estimated GFR > 60 > 60 (59 - ) Glucose 87 (65-110) mg/dL Calcium 8.8 (8.4-10.2) mg/dL Total Bilirubin 1.7 H (0.2-1.3) mg/dL Direct Bilirubin 0.0 (0-0.3) mg/dL AST 161 H (17-59) U/L ALT 140 H (6-50) U/L Alkaline Phosphatase 176 H (38-126) U/L Total Protein 9.5 H (6.3-8.2) g/dL Albumin 3.7 (3.5-5.1) g/dL Urine Color Yellow (Yellow) Urine Appearance Clear (Clear) Urine pH 6.5 (5.0-9.0) Ur Specific [place] > 1.045 H (1.001-1.035) Urine Protein Negative (Negative) mg/dL Urine Glucose (UA) Negative (Negative) mg/dL Urine Ketones Trace H (Negative) mg/dL Ur Blood (Man) Negative (Negative) Urine Nitrate Negative (Negative) Urine Bilirubin Negative (Negative) Urine Urobilinogen 1.0 (<2.0) mg/dL Leukocyte Esterase Rfl Negative (Negative) ANA/UL <Johnny Temple MD - Last Filed: 02/27/25 06:53> Imaging Data Radiologist's impression: Impressions Abdomen/Pelvis CT 02/24/25 16:31 IMPRESSION: Cirrhosis. Multiple liver lesions concerning for malignancy. 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 Esophagitis/gastritis. Moderate volume ascites. <Yaz Bender APRN - Last Filed: 02/24/25 19:21> Discharge Plan Discharge Clinical Impression: Cirrhosis of liver, Lesion of liver <Yaz Bender APRN - Last Filed: 02/24/25 19:21> Patient Disposition: Acute Care Hospital <Yaz Bender APRN - Last Filed: 02/24/25 19:21> Condition: Stable <Yaz Bender APRN - Last Filed: 02/24/25 19:21> Instructions: Antibiotic Form <Yaz Bender APRN - Last Filed: 02/24/25 19:21> Patient Language: Czech <Yaz Bender APRN - Last Filed: 02/24/25 19:21> Prescriptions: No Action No Home Medications benzonatate 200 mg capsule 200 mg PO TID PRN (Reason: cough) 10 Days Qty: 30 0RF prednisone 20 mg tablet 40 mg PO DAILY 5 Days Qty: 10 0RF albuterol sulfate [Ventolin HFA] 90 mcg/actuation HFA aerosol inhaler 2 puff INHALATION .Q4 hours PRN (Reason: cough) Qty: 18 0RF <Yaz Bender APRN - Last Filed: 02/24/25 19:21> Follow-up/Referrals: PHYSICIAN,LOG GETTER [Primary Care Provider] - <Yaz Bender APRN - Last Filed: 02/24/25 19:21>
[2025-02-24 16:03] LABS: Hematocrit 42.8 % (42.0-52.0); Hemoglobin 14.1 g/dL (14.0-18.0); Immature Granulocyte Percent A 0.3 % (0-0.5); Immature Platelet Fraction Pct 7.7 % (0.9-11.2); Lymphocytes Absolute Auto 1.67 K/mm3 (0.9-3.2); Mean Corpuscular HGB Conc 32.9 g/dl (32-36); Mean Corpuscular Hemoglobin 32.2 pg (26-34); Mean Corpuscular Volume 97.7 fl (80-100); Nucleated Red Blood Cells Absolute Auto 0.000 K/mm3 (0.0-0.012); Nucleated Red Blood Cells Perc 0.0 % (0.0-0.2); Platelet Count Result 97 k/mm3 (150-375); Red Blood Count 4.38 M/mm3 (4.6-6.20); White Blood Count 6.5 K/mm3 (4.5-10.0)
[2025-02-24 16:07] LABS: Estimated CRCL calculation 107 ml/min; Estimated Glomerular Filt Rate > 60
[2025-02-24 16:16] LABS: INR 1.3; Prothrombin Time 16.4 Seconds (11.1-14.7)
[2025-02-24 16:17] LABS: Partial Thromboplastin Time 33.9 Seconds (22.3-36.8)
[2025-02-24 16:26] LABS: Alanine Aminotransferase 140 U/L (6-50); Albumin Level 3.7 g/dL (3.5-5.1); Alkaline Phosphatase 176 U/L (38-126); Anion Gap 12 mmol/L (4-12); Aspartate Amino Transferase 161 U/L (17-59); Bilirubin,Total 1.7 mg/dL (0.2-1.3); Blood Urea Nitrogen 6 mg/dL (9-20); Calcium 8.8 mg/dL (8.4-10.2); Carbon Dioxide 22 mmol/L (22-30); Chloride 102 mmol/L (98-107); Estimated CRCL calculation 117 ml/min; Estimated Glomerular Filt Rate > 60; Glucose 87 mg/dL (65-110); Potassium 3.8 mmol/L (3.4-5.0); Sodium 136 mmol/L (137-145); Total Protein 9.5 g/dL (6.3-8.2)
[2025-02-24 17:07] LABS: Add Urine Microscopic? NO; Appearance Urine Clear (Clear); Glucose Urine UA Negative (Negative); Leukocyte Esterase Ur Negative LEU/UL (Negative); Nitrate Urine Negative (Negative); Specific Grav Ur > 1.045 (1.001-1.035)
[2025-02-24] MEDS: LORazepam (*CRX) 0.5 MG TABLET PO (18:43)
[2025-02-24] MEDS: NICOTINE (*PBKC) 21 MG PATCH 1 PATCH TRANSDERM (18:43)
--- NOTE | 2025-02-24 23:49 | PC.NURSE ---
This RN spoke to Kristin from [facility] and gave update on pt. Still waiting for a bed to become available.
--- NOTE | 2025-02-24 23:50 | PC.NURSE ---
This RN spoke to Kim and was told to call back if needed to [phone] .
[2025-02-25] VITALS (26 sets, daily range): BP systolic 91–129; BP diastolic 59–85; PULSE 85–116; RESP 14–27; TEMP 36.8; O2SAT 91–99
--- NOTE | 2025-02-25 01:49 | PC.NURSE ---
Per law secretary Piedad, [facility] states that pt is 17 of 23 on the waitlist and there will more than likely not be a bed available today.
--- NOTE | 2025-02-25 07:28 | PC.NURSE ---
Assumed care. Sleeping. In no distress.
--- NOTE | 2025-02-25 11:22 | PC.NURSE ---
Lunch tray ordered for pt.
--- NOTE | 2025-02-25 14:46 | PC.NURSE ---
Pt. sleeping with eyes closed. breathing equal and unlabored. RR 14, Oxygen 94% on RA and HR 75.
--- NOTE | 2025-02-25 16:05 | PC.NURSE ---
Dinner order placed for pt. to be delivered to bedside.
--- NOTE | 2025-02-25 17:00 | PC.NURSE ---
Meal tray delivered to bedside.
--- NOTE | 2025-02-25 20:20 | PC.NURSE ---
Pt. alerted this RN that prior nicotine patch came off. Dr. De La Paz notified and verbal order given. Pt. also c/o 6/10 abdominal pain. Pt. HR has increased. Dr. De La Paz aware and order placed by Md for medication.
--- NOTE | 2025-02-25 20:25 | PC.NURSE ---
Pt. Mom called the ER and is very upset on the phone about pt. irate behavior. Pt. has been calm and cooperative for this RN since this RN came on to shift at 1100. Pt. notified that his Mom has called multiple times asking for information about his care. Pt. let this RN know that his Mom has been upsetting him, and he feels calm otherwise. Pt. apologized to this RN for his Mom's behavior. This RN let Mom know on the phone that I cannot give out pt. health information, but that he has a cellphone in his room and can be contacted as needed.
[2025-02-25] MEDS: MORPHINE SULFATE (*CRX) 4 MG/ML INJ IV PUSH (20:51)
[2025-02-25] MEDS: NICOTINE (*PBKC) 21 MG PATCH 1 PATCH TRANSDERM (20:52)
--- NOTE | 2025-02-25 23:10 | PC.NURSE ---
assumed care of patient after receiving bedside report from Bonnie Ribeiro RN @ [id number]
[2025-02-26] VITALS (25 sets, daily range): BP systolic 81–131; BP diastolic 53–95; PULSE 79–129; RESP 13–24; TEMP 36.7; O2SAT 92–97
--- NOTE | 2025-02-26 09:03 | PC.NURSE ---
this RN spoke to [facility] to see the status of pt bed. this RN was told there's no bed yet. this RN discussing with EDP if pt can be admitted while he's waiting due to pt being in the ER for 40+ hours. EDP aware
--- NOTE | 2025-02-26 10:50 | PC.NURSE ---
this RN went to check on the pt at 0900 and to change pt nicotine patch. pt says he doesn't want it changed and just wants to sleep at that time
[2025-02-26] MEDS: NICOTINE (*PBKC) 21 MG PATCH 1 PATCH TRANSDERM (12:12)
[2025-02-26] MEDS: HYDROmorphone HCL INJ (*CRX) 2 MG/ML VIAL 0.5 MG IV PUSH (17:04)
[2025-02-26] MEDS: KETOROLAC 15 MG/ML VIAL (*BKC) (22:52)
[2025-02-27] VITALS (16 sets, daily range): BP systolic 92–142; BP diastolic 60–90; PULSE 90–115; RESP 14–21; TEMP 36.7; O2SAT 91–99
--- NOTE | 2025-02-27 05:13 | PC.NURSE ---
[facility] transfer line called to update this RN that [facility] still does not have a bed available and they are working towards getting him assigned a room.
[2025-02-27 07:35] LABS: Hematocrit 37.0 % (42.0-52.0); Hemoglobin 12.2 g/dL (14.0-18.0); Immature Granulocyte Percent A 0.2 % (0-0.5); Immature Platelet Fraction Pct 6.4 % (0.9-11.2); Lymphocytes Absolute Auto 1.52 K/mm3 (0.9-3.2); Mean Corpuscular HGB Conc 33.0 g/dl (32-36); Mean Corpuscular Hemoglobin 31.9 pg (26-34); Mean Corpuscular Volume 96.6 fl (80-100); Nucleated Red Blood Cells Absolute Auto 0.000 K/mm3 (0.0-0.012); Nucleated Red Blood Cells Perc 0.0 % (0.0-0.2); Platelet Count Result 74 k/mm3 (150-375); Red Blood Count 3.83 M/mm3 (4.6-6.20); White Blood Count 4.9 K/mm3 (4.5-10.0)
[2025-02-27 07:56] LABS: Alanine Aminotransferase 114 U/L (6-50); Albumin Level 2.8 g/dL (3.5-5.1); Alkaline Phosphatase 209 U/L (38-126); Anion Gap 5 mmol/L (4-12); Aspartate Amino Transferase 144 U/L (17-59); Bilirubin,Total 0.7 mg/dL (0.2-1.3); Blood Urea Nitrogen 7 mg/dL (9-20); Calcium 8.2 mg/dL (8.4-10.2); Carbon Dioxide 24 mmol/L (22-30); Chloride 106 mmol/L (98-107); Estimated CRCL calculation 116 ml/min; Estimated Glomerular Filt Rate > 60; Glucose 94 mg/dL (65-110); Potassium 4.0 mmol/L (3.4-5.0); Sodium 135 mmol/L (137-145); Total Protein 7.2 g/dL (6.3-8.2)
--- NOTE | 2025-02-27 08:27 | PC.NURSE ---
Patient resting at this time. Lights off and VSS
--- NOTE | 2025-02-27 11:30 | PC.NURSE ---
Patient sleeping at this time. VSS. breathing even and non labored. call light in reach.
--- NOTE | 2025-02-27 14:22 | PC.NURSE ---
Patient sleeping at this time. No needs at this time.
[2025-02-27] MEDS: HYDROmorphone HCL INJ (*CRX) 2 MG/ML VIAL 0.5 MG IV PUSH ×2 (16:47→19:46)
--- NOTE | 2025-02-27 18:51 | PC.NURSE ---
Spoke with Deondre from [facility] transfer center for update. She states no beds at this time, but patient is still on the list. Patient and charge preparation technician updated
[2025-02-27] MEDS: NICOTINE (*PBKC) 21 MG PATCH 1 PATCH TRANSDERM (19:50)
[2025-02-28] VITALS (13 sets, daily range): BP systolic 110–127; BP diastolic 69–94; PULSE 82–105; RESP 10–23; TEMP 35.8–37.2; O2SAT 93–98; BMI 22.5
[2025-02-28] MEDS: HYDROmorphone HCL INJ (*CRX) 2 MG/ML VIAL 0.5 MG IV PUSH ×4 (00:48→23:31)
--- NOTE | 2025-02-28 02:00 | PC.NURSE ---
This RN contacted [facility] transfer [facility] for an update on pt placement. Still awaiting bed, no availability at this time, and it will most likely be a while. Pt and MD updated. Pt denies any needs at this time.
--- NOTE | 2025-02-28 06:46 | ED.PROGRESS ---
Subjective Date/time seen: 02/28/25 06:46 Interval history: Patient is a 44-year-old male boarded here in the emergency department pending transfer to [facility] for hepatology consult. He has a history of hepatitis-C and came in several days ago with concern for abdominal pain. He was found to have multiple liver lesions concerning for hepatocellular carcinoma. Patient has been doing well for last few days without any interval changes and his repeat laboratory studies are stable. Still awaiting bed assignment and we have called [facility] multiple times without any movement on the wait list due to large demand. Patient remains hemodynamically stable. Review of Systems Review of Systems As above in the HPI All systems reviewed & are unremarkable except as noted in HPI and below Exam Narrative GENERAL: Well-appearing, well-nourished, and in no acute distress. HEAD: Normocephalic, atraumatic. EYES: PERRLA and EOMI. ENT: Nares clear, no rhinorrhea or epistaxis. Mucous membranes moist. Oropharynx without tonsillar hypertrophy exudate or other lesions. NECK: Supple. No adenopathy or masses. No carotid bruits or JVD CHEST: Clear to auscultation. No respiratory distress. No wheezes rales or rhonchi HEART: Regular rate and rhythm. No murmur heard. Normal peripheral pulses. ABDOMEN: Distended, bowel sounds present no real tenderness with palpation EXTREMITIES: Normal range of motion. No edema. SKIN: Warm, dry, no rash. NEURO: No focal deficits. Alert and oriented x3. PSYCH: Normal mood and affect. Objective Data Vital Signs Vital Signs: Vital Signs - 24 hr 02/27/25 07:43 02/27/25 08:45 02/27/25 09:30 Temperature 36.7 C Pulse Rate 93 92 100 Respiratory Rate 20 16 17 Blood Pressure 142/81 H Pulse Oximetry 94 98 93 02/27/25 14:23 02/27/25 16:00 02/27/25 16:29 Temperature Pulse Rate 92 91 92 Respiratory Rate 14 20 17 Blood Pressure 108/74 92/60 L 108/90 Pulse Oximetry 93 91 95 02/27/25 16:30 02/27/25 18:00 02/27/25 19:00 Temperature Pulse Rate 92 111 H 113 H Respiratory Rate 20 15 16 Blood Pressure 108/90 115/82 Pulse Oximetry 93 95 96 02/27/25 20:00 02/27/25 20:01 02/27/25 21:00 Temperature Pulse Rate 115 H 115 H 104 H Respiratory Rate 19 21 H 16 Blood Pressure 130/86 Pulse Oximetry 94 96 96 02/27/25 22:00 02/27/25 22:01 02/27/25 23:00 Temperature Pulse Rate 103 H 106 H 98 Respiratory Rate 17 16 15 Blood Pressure 118/83 Pulse Oximetry 95 95 97 02/28/25 00:00 02/28/25 00:01 02/28/25 01:00 Temperature Pulse Rate 105 H 105 H 101 H Respiratory Rate 17 13 23 H Blood Pressure 120/74 Pulse Oximetry 95 97 95 02/28/25 02:00 02/28/25 03:00 02/28/25 04:00 Temperature Pulse Rate 99 96 97 Respiratory Rate 14 17 10 L Blood Pressure 122/77 121/74 Pulse Oximetry 95 93 98 02/28/25 04:01 02/28/25 05:00 Temperature Pulse Rate 94 93 Respiratory Rate 15 19 Blood Pressure Pulse Oximetry 98 95 Meds/Results Medications: Active Medications Generic Name Dose Route Start Last Admin Trade Name Freq PRN Reason Stop Dose Admin Hydromorphone HCl 0.5 mg 02/27/25 16:30 02/28/25 00:48 Hydromorphone Hcl Inj (*Crx) 2 Mg/Ml Vial IV PUSH 0.5 mg Q3H PRN Administration Pain Rated 7-10 Nicotine 1 patch 02/25/25 20:35 02/27/25 19:50 Nicotine (*Pbkc) 21 Mg Patch TRANSDERM 1 patch DAILY TA Administration Radiology Results: ITS Impressions Abdomen/Pelvis CT 02/24/25 16:31 IMPRESSION: Cirrhosis. Multiple liver lesions concerning for malignancy. 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 Esophagitis/gastritis. Moderate volume ascites. Labs Labs: Laboratory Results - last 24 hr 02/27/25 07:24 WBC 4.9 RBC 3.83 L Hgb 12.2 L Hct 37.0 L MCV 96.6 MCH 31.9 MCHC 33.0 RDW 13.8 Plt Count 74 L MPV 12.0 H Immature Gran % (Auto) 0.2 Neut % (Auto) 54.2 Lymph % (Auto) 31.3 Gove % (Auto) 8.2 Eos % (Auto) 5.1 H Baso % (Auto) 1.0 Lymph # (Auto) 1.52 Gove # (Auto) 0.4 Eos # (Auto) 0.3 Baso # (Auto) 0.1 Abs Immat Gran (auto) 0.01 Absolute Neuts (auto) 2.6 Absolute Nucleated RBC 0.000 Nucleated RBC % 0.0 % Immature Plt Fraction 6.4 Sodium 135 L Potassium 4.0 Chloride 106 Carbon Dioxide 24 Anion Gap 5 BUN 7 L Creatinine 0.64 L Estim Creat Clear Calc 116 Estimated GFR > 60 Glucose 94 Calcium 8.2 L Total Bilirubin 0.7 AST 144 H ALT 114 H Alkaline Phosphatase 209 H Total Protein 7.2 Albumin 2.8 L Progress Note: A&P Assessment and Plan (1) Cirrhosis of liver: Qualifiers: Ascites presence: with ascites Hepatic cirrhosis type: unspecified hepatic cirrhosis Qualified Code(s): K74.60 - Unspecified cirrhosis of liver; R18.8 - Other ascites Code(s): K74.60 - Unspecified cirrhosis of liver Status: Inactive (2) Lesion of liver: Code(s): K76.9 - Liver disease, unspecified Status: Inactive Plan 44-year-old male with concern for newly diagnosed hepatocellular carcinoma currently awaiting transfer to tertiary care center under [facility] with hepatology and hospitalist accepting the patient. Patient is on day 4 of boarding here in the emergency department. Discussed the case with the night hospitalist Dr. Hill who was agreeable to accept the patient here pending transfer to tertiary care center but requested I clear at with Gastroenterology. Awaiting discussion with Dr. Daley the GI doctor for the weekend to make sure he was okay with seeing the patient here in the hospital and then we can admit him to the hospital. Spoke to Dr. Daley who agreed to be on consult. Admission orders placed to the hospitalist service. Patient made aware of the plan. Time Spent With Patient Time with patient: less than 15 minutes
--- NOTE | 2025-02-28 08:51 | WPDGICN ---
Assessment and Plan Assessment and plan (1) Cirrhosis of liver: Qualifiers: Ascites presence: with ascites Hepatic cirrhosis type: unspecified hepatic cirrhosis Qualified Code(s): K74.60 - Unspecified cirrhosis of liver; R18.8 - Other ascites Code(s): K74.60 - Unspecified cirrhosis of liver Status: Inactive (2) Ascites: Qualifiers: Ascites type: due to alcoholic cirrhosis Qualified Code(s): K70.31 - Alcoholic cirrhosis of liver with ascites Code(s): R18.8 - Other ascites Status: Acute (3) Lesion of liver: Code(s): K76.9 - Liver disease, unspecified Status: Inactive (4) Hepatitis C: Qualifiers: Viral hepatitis chronicity: unspecified Hepatic coma status: without hepatic coma Qualified Code(s): B19.20 - Unspecified viral hepatitis C without hepatic coma Code(s): B19.20 - Unspecified viral hepatitis C without hepatic coma Status: Acute (5) Generalized abdominal pain: Code(s): R10.84 - Generalized abdominal pain Status: Acute (6) ETOH abuse: Code(s): F10.10 - Alcohol abuse, uncomplicated Status: Acute Plan 1. Cirrhosis/ ascites/generalized abdominal pain/liver lesions/ETOH abuse/Hepatitis C: Patient diagnosed with Hep C around 8 months ago but has not been evaluated for treatment. History of ETOH abuse x 10 years but states that he quit cold February 23. Hx of past IV drug use, cocaine use, excessive Tylenol use in his 20's and has multiple tattoos some of which were not performed at a reputable tattoo shop. He has never had a blood transfusion. Since he stopped drinking started having abdominal distention and generalized abdominal pain that he describes as a crampy or shooting sensation that is worse with p.o. intake. He does state that he has gained around 15-20 lb since he stopped drinking. CT shows cirrhosis. Multiple liver lesions concerning for malignancy. 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 Esophagitis/gastritis. Moderate volume ascites. Patient denies any prior history of ascites or paracentesis. He has never had an EGD. He is not on a beta nikolay currently. Labs today show sodium 135, potassium 4.0, BUN 7, creatinine 0.64, WBC is 5, HGB 12, HCT 37, platelets 74, INR 1.3. Total bilirubin 0.7, AST 144, ALT 114, alkaline phosphatase 209, albumin 2.8 Due to radiology staffing we are unable to do a paracentesis at this time. Prior recommendations were for transfer to tertiary care, patient has been accepted at [facility] but is still pending available bed. Start Lasix 40 mg and Aldactone 100 mg PO daily, monitor kidney function closely 2 gm sodium diet Hep C labs ordered PETH level ordered MRI abd/liver to eval for portal vein thrombus vs tumor continued alcohol abstinence advised Further recommendations to follow workup Thank you very much for allowing me to share in the care of this very nice patient. This report may have been done utilizing a voice recognition system. Attempts have been made to correct errors. However, there may be uncorrected grammatical, spelling, and recognition errors present. GI Consult Note Consult date/time: 02/28/25 08:51 Reason for consult: Cirrhosis and ascites HPI: Db Feliz is a 44 year old male with Hx of ETOH abuse and recent Hep C diagnosis but otherwise unremarkable medical surgical history. Presented to the emergency room with complaints of abdominal distension and pain. GI has been consulted for cirrhosis and ascites. Patient states that he was diagnosed with hepatitis C by a provider in [place] but has not been evaluated for treatment yet. Patient states that since he stopped drinking he has noticed mild abdominal distension stating that his belly button started poking out. He complains of generalized abdominal pain that is crampy and shooting and is constant. This page increases with p.o. intake. He admits to abdominal bloating and occasional reflux but has not been requiring the use of daily antacids. Patient states that he is normally having a formed non urgent bowel movement every 1-2 days but occasionally has episodes of yellow or oily appearing stools. He denies normal stool appearance since his ER presentation. He denies any nausea, vomiting, odynophagia, dysphagia, regurgitation, early satiety, unexplained weight loss, appetite loss, diarrhea, constipation, hematochezia, or melena. History of past cocaine use, IV drug use, wild mushroom ingestion, and history of excessive Tylenol use in his 20s. He has multiple tattoos some of which were not performed at a reputable tattoo shop. History of excessive alcohol use for 10 years but quit cold turkey on February 23. He denies any prior history of blood transfusion. He denies any NSAID, aspirin, or anticoagulant use. No prior abdominal surgeries. Smokes 5-6 cigarettes daily and uses marijuana daily. Family history of colon cancer and his paternal grandfather. ENDOSCOPY HISTORY: Patient has never had an EGD or colonoscopy LABS AND STOOL STUDIES: Labs 02/28/2025: Sodium 135, potassium 4.0, BUN 7, creatinine 0.64, GFR >60, calcium 8.2 WBC 5, Hgb 12, Hct 37, MCV 97, platelets 74 Total bilirubin 0.7, AST 144, ALT 114, Alkaline Phos 209, albumin 2.8 Labs 02/24/2025: Sodium 136, potassium 3.8, BUN 6, creatinine 0.63, GFR >60, calcium 8.8 WBC 7, Hgb 14, Hct 43, MCV 98, platelets 97, INR 1.3 Total bilirubin 1.7, AST 161, ALT 140, Alkaline Phos 176, albumin 3.7 IMAGING: CT abd/pelvis w/contrast 02/24/2025: FINDINGS: Lower thorax: Bilateral dependent atelectasis/scar. Liver: Nodular liver border. Multiple heterogeneous liver lesions with capsular versus thin rim enhancement, measuring up to 5.5 cm. Apparent tumor invasion and small adjacent thrombus in the right portal vein branches extending to the junction with the right main portal vein. Biliary/Gallbladder: Pericholecystic fluid, nonspecific finding in the setting of liver disease. No stones. No bile duct dilation. Pancreas: No mass or duct dilation. Spleen: Normal. Adrenals:No mass. Kidneys: No suspicious mass, obstructing stone, or hydronephrosis. Subcentimeter bilateral hypodensities, too small to characterize but most likely represent cysts. GI tract: Moderate distal esophageal wall thickening. Mild gastric wall edema. No small or large bowel dilation. Normal appendix. Diverticulosis without diverticulitis. Mesentery/Peritoneum: Moderate volume simple ascitic fluid. No free air or mass is detected. Retroperitoneum: No mass. Pelvis: Pelvic organs are within normal limits. Soft Tissues: Small fat and fluid containing umbilical hernia. Bones: No acute osseous finding. IMPRESSION: Cirrhosis. Multiple liver lesions concerning for malignancy. 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 Esophagitis/gastritis. Moderate volume ascites. Review of Systems Constitutional: Constitutional: Reports as per HPI ENT: Reports as per HPI Cardiovascular: Cardiovascular: Reports as per HPI, Denies chest pain, Denies leg edema, Denies lightheadedness and Denies dyspnea Respiratory: Respiratory: Denies cough and Denies dyspnea Gastrointestinal: Gastrointestinal: Reports as per HPI and Reports abdominal pain Comments: abdominal distention Musculoskeletal: Musculoskeletal: Reports as per HPI Integumentary/Breasts: Skin/Breast: Reports as per HPI Psychiatric: Psychiatric: Reports as per HPI Endocrine: Endocrine: Reports no additional endocrine complaints Hematologic/Lymphatic: Hematologic/Lymphatic: Reports no additional hematologic/lymphatic complaints [facility] Past Medical History Medical History Fracture of thumb, left, closed Family History Family History Mother Family history of diabetes mellitus in first degree relative Other Diabetes mellitus Meds Home Medications and Allergies Home Medications ?Medication ?Instructions ?Recorded ?Confirmed ?Type omeprazole 20 mg delayed 20 mg PO DAILY 02/28/25 02/28/25 History release,disintegrating tablet Allergies Allergy/AdvReac Type Severity Reaction Status Date / Time No Known Allergies Allergy Verified 02/28/25 09:40 Vital Signs Vital Signs - 24 hr 02/27/25 09:30 02/27/25 14:23 02/27/25 16:00 Temperature Pulse Rate 100 92 91 Respiratory Rate 17 14 20 Blood Pressure 108/74 92/60 L Pulse Oximetry 93 93 91 02/27/25 16:29 02/27/25 16:30 02/27/25 18:00 Temperature Pulse Rate 92 92 111 H Respiratory Rate 17 20 15 Blood Pressure 108/90 108/90 115/82 Pulse Oximetry 95 93 95 02/27/25 19:00 02/27/25 20:00 02/27/25 20:01 Temperature Pulse Rate 113 H 115 H 115 H Respiratory Rate 16 19 21 H Blood Pressure 130/86 Pulse Oximetry 96 94 96 02/27/25 21:00 02/27/25 22:00 02/27/25 22:01 Temperature Pulse Rate 104 H 103 H 106 H Respiratory Rate 16 17 16 Blood Pressure 118/83 Pulse Oximetry 96 95 95 02/27/25 23:00 02/28/25 00:00 02/28/25 00:01 Temperature Pulse Rate 98 105 H 105 H Respiratory Rate 15 17 13 Blood Pressure 120/74 Pulse Oximetry 97 95 97 02/28/25 01:00 02/28/25 02:00 02/28/25 03:00 Temperature Pulse Rate 101 H 99 96 Respiratory Rate 23 H 14 17 Blood Pressure 122/77 Pulse Oximetry 95 95 93 02/28/25 04:00 02/28/25 04:01 02/28/25 05:00 Temperature Pulse Rate 97 94 93 Respiratory Rate 10 L 15 19 Blood Pressure 121/74 Pulse Oximetry 98 98 95 02/28/25 06:55 Temperature 97.9 F Pulse Rate 82 Respiratory Rate 16 Blood Pressure 122/79 Pulse Oximetry 96 Exam Const: General: cooperative, healthy appearing, comfortable, no acute distress and well developed Orientation/consciousness: oriented to person, oriented to place, oriented to time and patient oriented x3 HENMT: Head: normal to inspection, normocephalic and atraumatic Mouth: Yes Normal oral and palatal mucosa present and Yes moist mucous membranes Eyes: General: appearance normal, both eyes and all related structures Conjunctivae: conjunctivae normal Sclera: sclerae normal Pupils: Equal, round and reactive pupils present Neck: Neck: normal visual inspection Chest: Chest palpation & inspection: normal inspection of the chest Resp: Effort & Inspection: normal respiratory effort and able to speak in complete sentences Auscultation: clear to auscultation bilaterally Cardio: Jugular venous distension: no JVD Rate: regular rate Rhythm: regular rhythm Heart sounds: S1 normal heart sound present and S2 normal heart sound present GI: Inspection: distended GI Palp: Yes Soft to palpation, Yes Firmness to palpation present (GI), No Tenderness to palpation present (GI) and No Guarding due to palpation present (GI) Auscultation: normal bowel sounds Rectal Exam: deferred Other: No asterixis or confusion Skin: General skin exam: normal color and no rashes or lesions noted Neuro: General: oriented to person, oriented to place, oriented to time and patient oriented x3 Cranial nerves: Yes Equal, round and reactive pupils present Speech: normal speech Extrem: General: normal to inspection and no clubbing, cyanosis or edema Psych: Appearance: grossly normal and well kempt Affect: normal affect Results Labs 02/27/25 07:24 02/27/25 07:24
--- NOTE | 2025-02-28 09:28 | ADMGEN ---
This patient, Db Feliz, was admitted to -. Patient/family oriented to hospital policies and general routines including ID bracelet, bed and alarms, visiting hours, pain management, procedures, bathroom and other care routines, personal items, smoking policy, room service/diet, and visiting hours. Information on how to activate the Rapid Response Team has been discussed. Patient/Family are encouraged to report perceived risks to care and to ask questions if they do not understand what they are told or what they should do.
[2025-02-28] MEDS: FUROSEMIDE 40 MG TABLET PO (11:23)
[2025-02-28] MEDS: SPIRONOLACTONE 50 MG TABLET 100 MG PO (11:23)
[2025-02-28] MEDS: NICOTINE (*PBKC) 21 MG PATCH 1 PATCH TRANSDERM (11:24)
[2025-03-01] MEDS: HYDROmorphone HCL INJ (*CRX) 2 MG/ML VIAL 0.5 MG IV PUSH ×5 (04:39→22:47)
[2025-03-01 06:33] VITALS: BP 111/70; PULSE 106; RESP 20; TEMP 36.8; O2SAT 97
[2025-03-01] MEDS: FUROSEMIDE 40 MG TABLET PO (09:10)
[2025-03-01] MEDS: NICOTINE (*PBKC) 21 MG PATCH 1 PATCH TRANSDERM (09:10)
[2025-03-01] MEDS: SPIRONOLACTONE 50 MG TABLET 100 MG PO (09:10)
--- NOTE | 2025-03-01 11:20 | PC.NURSE ---
Returned to room from MRI.
--- NOTE | 2025-03-01 11:23 | P.PNGI_ITS ---
Progress Note: A&P Assessment and Plan (1) Ascites: Qualifiers: Ascites type: due to alcoholic cirrhosis Qualified Code(s): K70.31 - Alcoholic cirrhosis of liver with ascites Code(s): R18.8 - Other ascites Status: Acute Assessment and Plan: Our current management includes initiating a diuretic regimen of spironolactone 100 mg daily and furosemide 40 mg daily. We are awaiting critical laboratory results, including HCV RNA and alpha-fetoprotein, as well as the findings from the MRI scheduled for today. To differentiate between acute and chronic portal vein thrombosis, we plan to order a duplex Doppler sonogram of the abdominal vessels to evaluate for cavernous transformation, which would suggest chronicity. 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 Regarding liver function, the patient's MELD 3.0 score is 11. However, the presence of multiple hepatic masses, with the largest measuring up to 5 cm, significantly complicates their potential candidacy for liver transplantation. We will defer definitive decisions until the MRI provides a clearer picture of the tumor status. The case will be presented and discussed with the [facility] Hepatology Division on Monday. Unfortunately, a paracentesis to rule out SBP could not be performed today due to the unavailability of Radiology services (2) Hepatitis C: Qualifiers: Viral hepatitis chronicity: unspecified Hepatic coma status: without hepatic coma Qualified Code(s): B19.20 - Unspecified viral hepatitis C without hepatic coma Code(s): B19.20 - Unspecified viral hepatitis C without hepatic coma Status: Acute Subjective Date/time seen: 03/01/25 11:23 Interval history: The patient feels well, no difficulty breathing secondary to ascites. Exam Narrative: Non acutely distressed, anicteric. Lungs and chest: Clear. Abdomen: Distended, positive fluid wave, shifting dullness, positive umbilical hernia. No leg edema. Alert and awake, oriented x3. Objective Data Vital Signs Vital Signs: Vital Signs - 24 hr 02/28/25 14:41 02/28/25 21:49 03/01/25 06:33 Temperature 96.5 F L 98.3 F 98.2 F Pulse Rate 100 86 106 H Respiratory Rate 14 18 20 Blood Pressure 114/69 110/71 111/70 Pulse Oximetry 97 94 97 Oxygen Delivery 03/01/25 07:37 Temperature Pulse Rate Respiratory Rate Blood Pressure Pulse Oximetry Oxygen Delivery Room Air Intake/Output Intake/Output: Intake & Output 02/26/25 02/27/25 02/28/25 03/01/25 23:59 23:59 23:59 23:59 Intake Total 1120 120 Output Total 0 Balance 1120 120 Meds/Results Medications: Active Medications Generic Name Dose Route Start Last Admin Trade Name Freq PRN Reason Stop Dose Admin Acetaminophen 650 mg 03/01/25 09:38 Acetaminophen 325 Mg Tablet PO Q4H PRN Mild Pain (1-3) or Fever Furosemide 40 mg 02/28/25 10:50 03/01/25 09:10 Furosemide 40 Mg Tablet PO 40 mg DAILY TA Administration Hydromorphone HCl 0.5 mg 02/27/25 16:30 03/01/25 09:12 Hydromorphone Hcl Inj (*Crx) 2 Mg/Ml Vial IV PUSH 0.5 mg Q3H PRN Administration Pain Rated 7-10 Nicotine 1 patch 02/25/25 20:35 03/01/25 09:10 Nicotine (*Pbkc) 21 Mg Patch TRANSDERM 1 patch DAILY TA Administration Ondansetron HCl 4 mg 03/01/25 09:38 Ondansetron Inj 4 Mg/2 Ml Vial IV PUSH Q6H PRN Nausea And Vomiting Pantoprazole Sodium 40 mg 03/02/25 09:00 Pantoprazole 40 Mg Tablet PO QAM TA Spironolactone 100 mg 02/28/25 10:50 03/01/25 09:10 Spironolactone 50 Mg Tablet PO 100 mg QAM TA Administration Radiology Results: ITS Impressions Abdomen/Pelvis CT 02/24/25 16:31 IMPRESSION: Cirrhosis. Multiple liver lesions concerning for malignancy. 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 Esophagitis/gastritis. Moderate volume ascites. Labs Labs: Laboratory Results - last 24 hr 02/28/25 11:12 Hepatitis C Ab Screen Reactive HCV RNA (PCR) IUs/ml Cancelled HCV RNA PCR log IUs/ml Cancelled
--- NOTE | 2025-03-01 13:23 | P.HP_ITS ---
H&P: HPI History of Present Illness Date/Time: 03/01/25 13:23 Chief Complaint: ABD pain Narrative: Patient is a 44-year-old male who initially presented to the emergency department back on 02/24/2025 with complaints of moderate abdominal pain and that his umbilical hernia was pushing more than normal he also reported intermittent cramping but denied any nausea or vomiting or testicular pain. patient reported no significant past medical history except for the fact that he was just recently diagnosed with hepatitis-C has yet to receive treatment. in the emergency department patient was initially set up for transfer to [facility] for tree services with hepatobiliary due to new likely hepatocellular carcinoma, cirrhosis with ascites. patient continued to board in the emergency department awaiting bed placement for the last 5 days however U states they could be quite a few more days before they will have bed availability patient is currently hemodynamically stable. At that time it was discussed with ED physician and hospitalist as well as GI to admit patient to our medical services so we can start further diagnostic and imaging as well as treatment while patient waits for transfer. patient at time assessment denied any chest pain shortness a breath, nausea, vomiting but still endorsed abdominal pain mild. In the ED: Patient had underwent a CT abdomen which shows cirrhosis and multiple liver lesions concerning for malignancy which appeared to be likely tumor invasion of the right portal vein branches with small focus of the portal vein thrombus as well as esophagitis / gastritis and a moderate volume of ascites. initial vitals were unremarkable. labs did show elevated liver enzymes with a total bili of 1.7 and thrombocytopenia at 97 crisis unremarkable. Review of Systems Review of Systems: All systems reviewed & are unremarkable except as noted in HPI and below [facility] Past Medical History Medical History (Updated 03/01/25 @ 13:38 by Jena Monroe APRN) Hepatitis C Fracture of thumb, left, closed Family History Family History Mother Family history of diabetes mellitus in first degree relative Other Diabetes mellitus Social History Social History Years smoked: 27 Smoking status: Current every day smoker Tobacco type: cigarettes Additional smoking assessment comments: Progressively cutting back Alcohol intake: former Drinks per week: 60 Substance use: current Substance use type: marijuana, crack/cocaine, heroin, amphetamines, hallucinogens, opiates, painkillers, club/cartographic designer drugs, IV drugs, methamphetamine and prescription drug Other substance usage details: currently smokes marijuana- other is past Last use: 7 years on everything but marijuana Do You Feel Safe in your Home?: Yes Lack of Transportation: No Lack of Food: Never True Current Housing: I Do Not Have Housing Concerned About Future Housing: No Difficulty Paying Gas/Electric Bills: No Difficulty Paying for Meds: No Currently Unemployed: YES Education: Trade/Vocational Certificate Difficulty w/ Childcare or Family Care: No Spiritual care concerns: No Meds Home Medications and Allergies Home Medications ?Medication ?Instructions ?Recorded ?Confirmed ?Type omeprazole 20 mg delayed 20 mg PO DAILY 02/28/25 02/28/25 History release,disintegrating tablet Allergies Allergy/AdvReac Type Severity Reaction Status Date / Time No Known Allergies Allergy Verified 02/28/25 09:40 Vital Signs Vital Signs - 24 hr 02/28/25 14:41 02/28/25 21:49 03/01/25 06:33 Temperature 96.5 F L 98.3 F 98.2 F Pulse Rate 100 86 106 H Respiratory Rate 14 18 20 Blood Pressure 114/69 110/71 111/70 Pulse Oximetry 97 94 97 Oxygen Delivery 03/01/25 07:37 Temperature Pulse Rate Respiratory Rate Blood Pressure Pulse Oximetry Oxygen Delivery Room Air Exam Const: General: comfortable and no acute distress HENMT: Mouth: Yes moist mucous membranes Eyes: General: appearance normal, both eyes and all related structures Sclera: sclerae normal Pupils: Equal, round and reactive pupils present Neck: Neck: supple and no JVD Resp: Effort & Inspection: normal respiratory effort Auscultation: clear to auscultation bilaterally Cardio: Rate: regular rate Rhythm: regular rhythm GI: Inspection: distended GI Palp: Yes Firmness to palpation present (GI) and Yes Tenderness to palpation present (GI) Other: Umbilical hernia Skin: General skin exam: normal color Wounds: no wounds Neuro: General: gait normal Speech: normal speech Motor exam (neuro): 5/5 motor strength present throughout Sensory Exam: normal sensation Extrem: General: normal to inspection Psych: Mental Status: mental status grossly normal Affect: normal affect Assessment and Plan Assessment and plan (1) Hepatocellular carcinoma: Code(s): C22.0 - Liver cell carcinoma Status: Acute Assessment and Plan: CT abdomen concerning due to multiple liver lesions, GI has been consulted to until patient transferred to tertiary care * abdominal MRI pending * abdominal duplex ultrasound pending * unable to perform paracentesis to rule SBP due to no Radiology Services at this time (2) Ascites: Qualifiers: Ascites type: due to alcoholic cirrhosis Qualified Code(s): K70.31 - Alcoholic cirrhosis of liver with ascites Code(s): R18.8 - Other ascites Status: Acute Assessment and Plan: * continue with Lasix and spironolactone * can hopefully perform paracentesis is still here on Monday * meld 3 point score is 11 (3) Hepatitis C: Qualifiers: Viral hepatitis chronicity: unspecified Hepatic coma status: without hepatic coma Qualified Code(s): B19.20 - Unspecified viral hepatitis C without hepatic coma Code(s): B19.20 - Unspecified viral hepatitis C without hepatic coma Status: Acute Assessment and Plan: patient recently diagnosed with hepatitis-C * RNA pending (4) Thrombocytopenia: Code(s): D69.6 - Thrombocytopenia, unspecified Status: Acute Assessment and Plan: platelets 97 side events POA now 76 is obviously secondary to patient's liver function hepatitis C possible carcinoma * monitor PLT * transfuse if < 15 * High risk bleeding precautions Plan Code status: Full code per patient DVT prophylaxis: SCD's Stress ulcer prophylaxis: Protonix 40 daily PT/OT notes: Ambulatory Disposition: patient continues admission for further evaluation of hepatitis C, ascites and possible hepatocellular carcinoma patient is currently on the wait list insert for transfer to [facility] literature to care for hepatobiliary services. Quality VTE Prophylaxis VTE prophylaxis: mechanical ordered -Patient's previous records reviewed on admission -ER notes reviewed in detail on admission -discussed all findings and current treatment plan with patient/Family/POA -Consultations reviewed for recommendations -Patient's disposition for safe discharge discussed with case monitor Dictation performed by [employer] direct speech recognition software, therefore directional survey drafter variants and typographical errors may occur. Hospitalist [facility] Advance Care Plan I have confirmed that the patient's Advanced Care Plan is present, code status is documented, or surrogate decision maker is listed in patient medical record.: Yes Medication Reconciliation I have utilized all available resources to obtain, update and review the patients current medications (includes all prescriptions, OTC, herbals, cannabis, and nutritional supplements).: Yes The patient is not eligible for med reconciliation; the patient is in a emergent medical situation where delaying treatment would jeopardize the patients health.: No
--- NOTE | 2025-03-01 13:39 | PC.NURSE ---
Ultrasound at bedside.
[2025-03-01 14:37] VITALS: BP 117/75; PULSE 105; RESP 14; TEMP 36.4; O2SAT 97
[2025-03-01 21:15] VITALS: O2SAT 98
[2025-03-01 21:52] VITALS: BP 138/90; PULSE 106; RESP 18; TEMP 36.6; O2SAT 98
[2025-03-02] MEDS: HYDROmorphone HCL INJ (*CRX) 2 MG/ML VIAL 0.5 MG IV PUSH (04:53)
[2025-03-02 06:29] LABS: Hematocrit 36.7 % (42.0-52.0); Hemoglobin 12.5 g/dL (14.0-18.0); Immature Granulocyte Percent A 0.2 % (0-0.5); Immature Platelet Fraction Pct 8.1 % (0.9-11.2); Lymphocytes Absolute Auto 1.09 K/mm3 (0.9-3.2); Mean Corpuscular HGB Conc 34.1 g/dl (32-36); Mean Corpuscular Hemoglobin 32.3 pg (26-34); Mean Corpuscular Volume 94.8 fl (80-100); Nucleated Red Blood Cells Absolute Auto 0.000 K/mm3 (0.0-0.012); Nucleated Red Blood Cells Perc 0.0 % (0.0-0.2); Platelet Count Result 79 k/mm3 (150-375); Red Blood Count 3.87 M/mm3 (4.6-6.20); White Blood Count 5.6 K/mm3 (4.5-10.0)
[2025-03-02 06:47] LABS: Alanine Aminotransferase 102 U/L (6-50); Albumin Level 3.1 g/dL (3.5-5.1); Alkaline Phosphatase 167 U/L (38-126); Anion Gap 7 mmol/L (4-12); Aspartate Amino Transferase 127 U/L (17-59); Bilirubin,Total 1.0 mg/dL (0.2-1.3); Blood Urea Nitrogen 9 mg/dL (9-20); Calcium 8.4 mg/dL (8.4-10.2); Carbon Dioxide 25 mmol/L (22-30); Chloride 98 mmol/L (98-107); Estimated CRCL calculation 120 ml/min; Estimated Glomerular Filt Rate > 60; Glucose 89 mg/dL (65-110); Potassium 3.6 mmol/L (3.4-5.0); Sodium 130 mmol/L (137-145); Total Protein 7.9 g/dL (6.3-8.2)
[2025-03-02 06:52] VITALS: BP 128/88; PULSE 99; RESP 18; TEMP 36.7; O2SAT 98
--- NOTE | 2025-03-02 09:05 | P.PNIM_ITS ---
Progress Note: A&P Assessment and Plan (1) Hepatocellular carcinoma: Code(s): C22.0 - Liver cell carcinoma Status: Acute Assessment and Plan: CT abdomen concerning due to multiple liver lesions, GI has been consulted to until patient transferred to tertiary care * abdominal MRI Impression: 7.6 x 5.0 x 6.8 cm irregular mass in the liver with direct invasion/extension into the right portal vein (compatible with tumor thrombus). This is suspicious for hepatocellular carcinoma given background cirrhotic change of the liver versus other neoplastic disease. Consider tissue sampling. Correlate with serum alpha-fetoprotein level. Moderate to large amount of abdominopelvic ascites. * alpha-fetaprotein pending * abdominal duplex ultrasound pending * unable to perform paracentesis to rule SBP due to no Radiology Services at this time hopefully can plan for tomorrow * added scheduled Percocet for better pain control as well as IVP (2) Ascites: Qualifiers: Ascites type: due to alcoholic cirrhosis Qualified Code(s): K70.31 - Alcoholic cirrhosis of liver with ascites Code(s): R18.8 - Other ascites Status: Acute Assessment and Plan: * continue with Lasix and spironolactone * MRI with moderate size ascites * can hopefully perform paracentesis on Monday03/03/2025 * meld 3 point score is 11 (3) Hepatitis C: Qualifiers: Hepatic coma status: without hepatic coma Viral hepatitis chronicity: unspecified Qualified Code(s): B19.20 - Unspecified viral hepatitis C without hepatic coma Code(s): B19.20 - Unspecified viral hepatitis C without hepatic coma Status: Acute Assessment and Plan: patient recently diagnosed with hepatitis-C * RNA pending * trend liver enzymes (4) Thrombocytopenia: Code(s): D69.6 - Thrombocytopenia, unspecified Status: Acute Assessment and Plan: platelets 97 side events POA now 76 is obviously secondary to patient's liver function hepatitis C possible carcinoma * monitor PLT * transfuse if < 15 * High risk bleeding precautions Plan Code status: Full code per patient DVT prophylaxis: SCD's Stress ulcer prophylaxis: Protonix 40 daily PT/OT notes: Ambulatory Disposition: patient continues admission for further evaluation of hepatitis C, ascites and possible hepatocellular carcinoma patient is currently on the wait list insert for transfer to [facility] literature to care for hepatobiliary services. Time Spent With Patient Time with patient: 15 - 25 minutes Subjective Date/time seen: 03/02/25 09:05 Interval history: Patient is a 44-year-old male who was admitted for further evaluation and treatment of new onset hepatitis-C, ascites and concern for hepatocellular carcinoma currently on the wait list for [facility] but will be admitted for diagnostic testing and possible paracentesis awaiting for transfer. 03/02/2025: Patient reported moderate to severe pain not well controlled otherwise no further complaints. Still waiting on transfer to [facility], large liver mass with invasion/extension to the right portal vein. Review of Systems 2 Review of Systems: All systems reviewed & are unremarkable except as noted in HPI and below Exam Const: General: comfortable and no acute distress HENMT: Mouth: Yes moist mucous membranes Eyes: General: appearance normal, both eyes and all related structures Sclera: sclerae normal Pupils: Equal, round and reactive pupils present Neck: Neck: supple and no JVD Resp: Effort & Inspection: normal respiratory effort Auscultation: clear to auscultation bilaterally Cardio: Rate: regular rate Rhythm: regular rhythm GI: Inspection: distended Other: Umbilical hernia Skin: General skin exam: normal color Wounds: no wounds Neuro: General: gait normal Cranial nerves: Yes Equal, round and reactive pupils present Speech: normal speech Motor exam (neuro): 5/5 motor strength present throughout Sensory Exam: normal sensation Extrem: General: normal to inspection Psych: Mental Status: mental status grossly normal Affect: normal affect Objective Data Vital Signs Vital Signs: Vital Signs - 24 hr 03/01/25 14:37 03/01/25 21:03 03/01/25 21:15 Temperature 97.5 F L Pulse Rate 105 H Respiratory Rate 14 Blood Pressure 117/75 Pulse Oximetry 97 98 Oxygen Delivery Room Air Room Air 03/01/25 21:52 03/02/25 06:52 Temperature 98 F 98.1 F Pulse Rate 106 H 99 Respiratory Rate 18 18 Blood Pressure 138/90 128/88 Pulse Oximetry 98 98 Oxygen Delivery Intake/Output Intake/Output: Intake & Output 02/27/25 02/28/25 03/01/25 03/02/25 23:59 23:59 23:59 23:59 Intake Total 1120 870 390 Output Total 0 Balance 1120 870 390 Meds/Results Medications: Active Medications Generic Name Dose Route Start Last Admin Trade Name Freq PRN Reason Stop Dose Admin Acetaminophen 650 mg 03/01/25 09:38 Acetaminophen 325 Mg Tablet PO Q4H PRN Mild Pain (1-3) or Fever Furosemide 40 mg 02/28/25 10:50 03/01/25 09:10 Furosemide 40 Mg Tablet PO 40 mg DAILY TA Administration Hydromorphone HCl 0.5 mg 02/27/25 16:30 03/02/25 04:53 Hydromorphone Hcl Inj (*Crx) 2 Mg/Ml Vial IV PUSH 0.5 mg Q3H PRN Administration Pain Rated 7-10 Nicotine 1 patch 02/25/25 20:35 03/01/25 09:10 Nicotine (*Pbkc) 21 Mg Patch TRANSDERM 1 patch DAILY TA Administration Ondansetron HCl 4 mg 03/01/25 09:38 Ondansetron Inj 4 Mg/2 Ml Vial IV PUSH Q6H PRN Nausea And Vomiting Pantoprazole Sodium 40 mg 03/02/25 09:00 Pantoprazole 40 Mg Tablet PO QAM TA Spironolactone 100 mg 02/28/25 10:50 03/01/25 09:10 Spironolactone 50 Mg Tablet PO 100 mg QAM TA Administration Radiology Results: ITS Impressions Abdomen/Pelvis CT 02/24/25 16:31 IMPRESSION: Cirrhosis. Multiple liver lesions concerning for malignancy. 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 Esophagitis/gastritis. Moderate volume ascites. Abdomen MRI 03/01/25 14:32 Impression: 7.6 x 5.0 x 6.8 cm irregular mass in the liver with direct invasion/extension into the right portal vein (compatible with tumor thrombus). This is suspicious for hepatocellular carcinoma given background cirrhotic change of the liver versus other neoplastic disease. Consider tissue sampling. Correlate with serum alpha-fetoprotein level. Moderate to large amount of abdominopelvic ascites. Gallbladder wall thickening is probably reactive due to the presence of ascites. Vascular Ultrasound 03/01/25 14:44 Impression: Cirrhotic liver with 6.0 x 4.0 x 5.0 cm hypoechoic mass towards the dome, compatible with hepatocellular carcinoma versus other neoplastic lesion. Reversal of normal direction of flow in the main portal vein. Gallbladder wall thickening is probably related to the presence of moderate to large amount of abdominal ascites. No gallstone evident. Labs Labs: Laboratory Results - last 24 hr 03/02/25 05:30 WBC 5.6 RBC 3.87 L Hgb 12.5 L Hct 36.7 L MCV 94.8 MCH 32.3 MCHC 34.1 RDW 13.7 Plt Count 79 L MPV 11.8 H Immature Gran % (Auto) 0.2 Neut % (Auto) 69.8 Lymph % (Auto) 19.4 [place] % (Auto) 8.7 H Eos % (Auto) 1.4 Baso % (Auto) 0.5 Lymph # (Auto) 1.09 [place] # (Auto) 0.5 Eos # (Auto) 0.1 Baso # (Auto) 0.0 Abs Immat Gran (auto) 0.01 Absolute Neuts (auto) 3.9 Absolute Nucleated RBC 0.000 Nucleated RBC % 0.0 % Immature Plt Fraction 8.1 Sodium 130 L Potassium 3.6 Chloride 98 Carbon Dioxide 25 Anion Gap 7 BUN 9 Creatinine 0.61 L Estim Creat Clear Calc 120 Estimated GFR > 60 Glucose 89 Calcium 8.4 Total Bilirubin 1.0 AST 127 H ALT 102 H Alkaline Phosphatase 167 H Total Protein 7.9 Albumin 3.1 L Quality VTE Prophylaxis VTE prophylaxis: mechanical ordered -Patient's previous records reviewed on admission -ER notes reviewed in detail on admission -discussed all findings and current treatment plan with patient/Family/POA -Consultations reviewed for recommendations -Patient's disposition for safe discharge discussed with field nurse case manager Dictation performed by aitainment direct speech recognition software, therefore ed teacher variants and typographical errors may occur. Hospitalist MIPS Advance Care Plan I have confirmed that the patient's Advanced Care Plan is present, code status is documented, or surrogate decision maker is listed in patient medical record.: Yes Medication Reconciliation I have utilized all available resources to obtain, update and review the patients current medications (includes all prescriptions, OTC, herbals, cannabis, and nutritional supplements).: Yes The patient is not eligible for med reconciliation; the patient is in a emergent medical situation where delaying treatment would jeopardize the patients health.: No
[2025-03-02] MEDS: SPIRONOLACTONE 50 MG TABLET 100 MG PO (09:48)
[2025-03-02] MEDS: NICOTINE (*PBKC) 21 MG PATCH 1 PATCH TRANSDERM (09:48)
[2025-03-02] MEDS: FUROSEMIDE 40 MG TABLET PO (09:48)
[2025-03-02] MEDS: PANTOPRAZOLE 40 MG TABLET PO (09:48)
--- NOTE | 2025-03-02 11:19 | P.PNGI_ITS ---
Progress Note: A&P Assessment and Plan (1) Hepatitis C: Qualifiers: Viral hepatitis chronicity: unspecified Hepatic coma status: without hepatic coma Qualified Code(s): B19.20 - Unspecified viral hepatitis C without hepatic coma Code(s): B19.20 - Unspecified viral hepatitis C without hepatic coma Status: Acute (2) Ascites: Qualifiers: Ascites type: due to alcoholic cirrhosis Qualified Code(s): K70.31 - Alcoholic cirrhosis of liver with ascites Code(s): R18.8 - Other ascites Status: Acute Assessment and Plan: MRI reveals a 7 cm mass highly suspicious for hepatocellular carcinoma with associated portal vein thrombosis, indicative of tumor invasion. This, coupled with ascites and a high MELD score, points to a very poor prognosis. The patient is not a candidate for curative resection or other HCC treatment modalities, including oral chemotherapy, due to poor synthetic liver function. Furthermore, despite his young age, the tumor's size likely contraindicates liver transplantation. Even treatment for hepatitis C with direct antiviral agents is debatable, given his poor prognosis. Regarding ascites management, he is receiving Lasix and Spironolactone and a large volume paracentesis will be planned for tomorrow, depending on the availability of radiology. Carvedilol is not recommended for primary variceal prophylaxis in his case given his significant ascites and current diuretic use, which pose a high risk of hypotension. Therefore, an EGD is scheduled for tomorrow to evaluate for [id number] varices, and if present, the first session of endoscopic variceal ligation will be performed. Multidisciplinary and palliative care will be continued at [facility], where he was originally scheduled prior to this admission. (3) Hepatocellular carcinoma: Code(s): C22.0 - Liver cell carcinoma Status: Acute Subjective Date/time seen: 03/02/25 11:19 Objective Data Vital Signs Vital Signs: Vital Signs - 24 hr 03/01/25 14:37 03/01/25 21:03 03/01/25 21:15 Temperature 97.5 F L Pulse Rate 105 H Respiratory Rate 14 Blood Pressure 117/75 Pulse Oximetry 97 98 Oxygen Delivery Room Air Room Air 03/01/25 21:52 03/02/25 06:52 Temperature 98 F 98.1 F Pulse Rate 106 H 99 Respiratory Rate 18 18 Blood Pressure 138/90 128/88 Pulse Oximetry 98 98 Oxygen Delivery Intake/Output Intake/Output: Intake & Output 02/27/25 02/28/25 03/01/25 03/02/25 23:59 23:59 23:59 23:59 Intake Total 1120 870 630 Output Total 0 Balance 1120 870 630 Meds/Results Medications: Active Medications Generic Name Dose Route Start Last Admin Trade Name Freq PRN Reason Stop Dose Admin Acetaminophen 650 mg 03/01/25 09:38 Acetaminophen 325 Mg Tablet PO Q4H PRN Mild Pain (1-3) or Fever Furosemide 40 mg 02/28/25 10:50 03/02/25 09:48 Furosemide 40 Mg Tablet PO 40 mg DAILY TA Administration Hydromorphone HCl 0.5 mg 02/27/25 16:30 03/02/25 04:53 Hydromorphone Hcl Inj (*Crx) 2 Mg/Ml Vial IV PUSH 0.5 mg Q3H PRN Administration Pain Rated 7-10 Nicotine 1 patch 02/25/25 20:35 03/02/25 09:48 Nicotine (*Pbkc) 21 Mg Patch TRANSDERM 1 patch DAILY TA Administration Ondansetron HCl 4 mg 03/01/25 09:38 Ondansetron Inj 4 Mg/2 Ml Vial IV PUSH Q6H PRN Nausea And Vomiting Pantoprazole Sodium 40 mg 03/02/25 09:00 03/02/25 09:48 Pantoprazole 40 Mg Tablet PO 40 mg QAM TA Administration Spironolactone 100 mg 02/28/25 10:50 03/02/25 09:48 Spironolactone 50 Mg Tablet PO 100 mg QAM TA Administration Radiology Results: ITS Impressions Abdomen/Pelvis CT 02/24/25 16:31 IMPRESSION: Cirrhosis. Multiple liver lesions concerning for malignancy. 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 Esophagitis/gastritis. Moderate volume ascites. Abdomen MRI 03/01/25 14:32 Impression: 7.6 x 5.0 x 6.8 cm irregular mass in the liver with direct invasion/extension into the right portal vein (compatible with tumor thrombus). This is suspicious for hepatocellular carcinoma given background cirrhotic change of the liver versus other neoplastic disease. Consider tissue sampling. Correlate with serum alpha-fetoprotein level. Moderate to large amount of abdominopelvic ascites. Gallbladder wall thickening is probably reactive due to the presence of ascites. Vascular Ultrasound 03/01/25 14:44 Impression: Cirrhotic liver with 6.0 x 4.0 x 5.0 cm hypoechoic mass towards the dome, compatible with hepatocellular carcinoma versus other neoplastic lesion. Reversal of normal direction of flow in the main portal vein. Gallbladder wall thickening is probably related to the presence of moderate to large amount of abdominal ascites. No gallstone evident. Labs Labs: Laboratory Results - last 24 hr 03/02/25 05:30 WBC 5.6 RBC 3.87 L Hgb 12.5 L Hct 36.7 L MCV 94.8 MCH 32.3 MCHC 34.1 RDW 13.7 Plt Count 79 L MPV 11.8 H Immature Gran % (Auto) 0.2 Neut % (Auto) 69.8 Lymph % (Auto) 19.4 [place] % (Auto) 8.7 H Eos % (Auto) 1.4 Baso % (Auto) 0.5 Lymph # (Auto) 1.09 [place] # (Auto) 0.5 Eos # (Auto) 0.1 Baso # (Auto) 0.0 Abs Immat Gran (auto) 0.01 Absolute Neuts (auto) 3.9 Absolute Nucleated RBC 0.000 Nucleated RBC % 0.0 % Immature Plt Fraction 8.1 Sodium 130 L Potassium 3.6 Chloride 98 Carbon Dioxide 25 Anion Gap 7 BUN 9 Creatinine 0.61 L Estim Creat Clear Calc 120 Estimated GFR > 60 Glucose 89 Calcium 8.4 Total Bilirubin 1.0 AST 127 H ALT 102 H Alkaline Phosphatase 167 H Total Protein 7.9 Albumin 3.1 L
[2025-03-02] MEDS: HYDROmorphone HCL INJ (*CRX) 2 MG/ML VIAL 1 MG IV PUSH ×2 (13:11→16:48)
[2025-03-02 15:07] VITALS: BP 126/72; PULSE 101; RESP 16; TEMP 36.1; O2SAT 98
[2025-03-02] MEDS: oxyCODONE HCL (*CRX) 5 MG TAB IR PO ×2 (18:51→23:49)
[2025-03-02] MEDS: SENNA/DOCUSATE SODIUM TABLET 1 TAB PO (20:12)
[2025-03-02 21:52] VITALS: BP 121/67; PULSE 103; RESP 18; TEMP 36.2; O2SAT 99
[2025-03-03] VITALS (8 sets, daily range): BP systolic 114–137; BP diastolic 67–85; PULSE 91–110; RESP 18–20; TEMP 36.2–36.6; O2SAT 99–100
[2025-03-03] MEDS: oxyCODONE HCL (*CRX) 5 MG TAB IR PO ×2 (06:07→17:16)
[2025-03-03 07:01] LABS: Alanine Aminotransferase 101 U/L (6-50); Albumin Level 3.2 g/dL (3.5-5.1); Alkaline Phosphatase 140 U/L (38-126); Anion Gap 7 mmol/L (4-12); Aspartate Amino Transferase 126 U/L (17-59); Bilirubin,Total 1.2 mg/dL (0.2-1.3); Blood Urea Nitrogen 7 mg/dL (9-20); Calcium 8.7 mg/dL (8.4-10.2); Carbon Dioxide 26 mmol/L (22-30); Chloride 99 mmol/L (98-107); Estimated CRCL calculation 113 ml/min; Estimated Glomerular Filt Rate > 60; Glucose 81 mg/dL (65-110); Potassium 4.0 mmol/L (3.4-5.0); Sodium 132 mmol/L (137-145); Total Protein 8.2 g/dL (6.3-8.2)
[2025-03-03 07:25] LABS: Hematocrit 37.3 % (42.0-52.0); Hemoglobin 12.4 g/dL (14.0-18.0); Immature Granulocyte Percent A 0.0 % (0-0.5); Immature Platelet Fraction Pct 7.3 % (0.9-11.2); Lymphocytes Absolute Auto 1.89 K/mm3 (0.9-3.2); Mean Corpuscular HGB Conc 33.2 g/dl (32-36); Mean Corpuscular Hemoglobin 31.9 pg (26-34); Mean Corpuscular Volume 95.9 fl (80-100); Nucleated Red Blood Cells Absolute Auto 0.000 K/mm3 (0.0-0.012); Nucleated Red Blood Cells Perc 0.0 % (0.0-0.2); Platelet Count Result 78 k/mm3 (150-375); Red Blood Count 3.89 M/mm3 (4.6-6.20); White Blood Count 5.2 K/mm3 (4.5-10.0)
[2025-03-03] MEDS: HYDROmorphone HCL INJ (*CRX) 2 MG/ML VIAL 1 MG IV PUSH ×4 (07:53→23:38)
[2025-03-03 08:57] LABS: INR 1.3; Partial Thromboplastin Time 32.1 Seconds (22.3-36.8); Prothrombin Time 16.4 Seconds (11.1-14.7)
[2025-03-03] MEDS: FUROSEMIDE 40 MG TABLET PO (09:25)
[2025-03-03] MEDS: NICOTINE (*PBKC) 21 MG PATCH 1 PATCH TRANSDERM (09:25)
[2025-03-03] MEDS: SPIRONOLACTONE 50 MG TABLET 100 MG PO (09:25)
--- NOTE | 2025-03-03 11:30 | PCNWS ---
Weekly nutritional screen. Patient is tolerating current 2gm NA diet with adequate intake most meals at 100%. No weight loss noted. No nutritional recommendations at this time.
--- NOTE | 2025-03-03 11:55 | PC.NURSE ---
To GI Lab per wheelchair.
--- NOTE | 2025-03-03 12:00 | PC.NURSE ---
NPO for EGD. Roxicodone scheduled at 1200 not given.
[2025-03-03] MEDS: LACTATED RINGERS 1,000 ML 150 ML IV CONT (12:07)
[2025-03-03] MEDS: SIMETHICONE ORAL SUSPENSION 20 MG/0.3 ML 30 ML BOTTLE 1.8 ML PO (12:24)
--- NOTE | 2025-03-03 12:25 | WPDANESEPPF ---
Anes - Initial Pre Proc Eval Procedure: Operation Date: 03/03/25 13:00 Proposed Procedures p Esophagogastroduodenoscopy with possible banding of esophageal varices - Sujit Daley MD Date/Time: 03/03/25 12:25 Surgeon: Randi Hill MD Pre Op Diagnosis: Abdominal Distension/Multi Liver Lesions Concering Patient Data Age: 44 Gender: M Height: 1.68 m Weight: 62.8 kg Last Vital Signs Temp 36.2 C L 03/03/25 12:04 Pulse 103 H 03/03/25 12:04 Resp 18 03/03/25 12:04 BP 121/67 03/03/25 12:04 Pulse Ox 99 03/03/25 12:04 O2 Del Method Room Air 03/03/25 12:04 Allergies Allergy/AdvReac Type Severity Reaction Status Date / Time No Known Allergies Allergy Verified 03/03/25 12:03 Home Medications ?Medication ?Instructions ?Recorded ?Confirmed ?Type omeprazole 20 mg delayed 20 mg PO DAILY 02/28/25 02/28/25 History release,disintegrating tablet Laboratory Tests 02/28/25 03/03/25 03/03/25 11:12 06:15 07:17 WBC 5.2 K/mm3 (4.5-10.0) RBC 3.89 L M/mm3 (4.6-6.20) Hgb 12.4 L g/dL (14.0-18.0) Hct 37.3 L % (42.0-52.0) MCV 95.9 fl (80-100) MCH 31.9 pg (26-34) MCHC 33.2 g/dl (32-36) RDW 13.7 % (11.5-14.5) Plt Count 78 L k/mm3 (150-375) MPV 11.7 H fl (7.4-10.4) Immature Gran % (Auto) 0.0 % (0-0.5) Neut % (Auto) 49.7 % (45.5-73.1) Lymph % (Auto) 36.1 % (18.3-44.2) [place] % (Auto) 11.1 H % (2.6-8.5) Eos % (Auto) 2.5 % (0-4.4) Baso % (Auto) 0.6 % (0.2-1.2) Lymph # (Auto) 1.89 K/mm3 (0.9-3.2) [place] # (Auto) 0.6 K/mm3 (0.1-0.6) Eos # (Auto) 0.1 K/mm3 (0-0.3) Baso # (Auto) 0.0 K/mm3 (0.0-0.1) Abs Immat Gran (auto) 0.00 K/mm3 (0.00-0.031) Absolute Neuts (auto) 2.6 K/mm3 (1.3-6.7) Absolute Nucleated RBC 0.000 K/mm3 (0.0-0.012) Nucleated RBC % 0.0 % (0.0-0.2) % Immature Plt Fraction 7.3 % (0.9-11.2) PT INR APTT Sodium 132 L mmol/L (137-145) Potassium 4.0 mmol/L (3.4-5.0) Chloride 99 mmol/L (98-107) Carbon Dioxide 26 mmol/L (22-30) Anion Gap 7 mmol/L (4-12) BUN 7 L mg/dL (9-20) Creatinine 0.65 L mg/dL (0.7-1.3) Estim Creat Clear Calc 113 ml/min Estimated GFR > 60 (59 - ) Glucose 81 mg/dL (65-110) Calcium 8.7 mg/dL (8.4-10.2) Total Bilirubin 1.2 mg/dL (0.2-1.3) AST 126 H U/L (17-59) ALT 101 H U/L (6-50) Alkaline Phosphatase 140 H U/L (38-126) Total Protein 8.2 g/dL (6.3-8.2) Albumin 3.2 L g/dL (3.5-5.1) Hepatitis C RNA Quant Pending HCV RNA (PCR) log10 Pending Hepatitis C Genotype 3 (.) 03/03/25 08:32 WBC RBC Hgb Hct MCV MCH MCHC RDW Plt Count MPV Immature Gran % (Auto) Neut % (Auto) Lymph % (Auto) [place] % (Auto) Eos % (Auto) Baso % (Auto) Lymph # (Auto) [place] # (Auto) Eos # (Auto) Baso # (Auto) Abs Immat Gran (auto) Absolute Neuts (auto) Absolute Nucleated RBC Nucleated RBC % % Immature Plt Fraction PT 16.4 H Seconds (11.1-14.7) INR 1.3 APTT 32.1 Seconds (22.3-36.8) Sodium Potassium Chloride Carbon Dioxide Anion Gap BUN Creatinine Estim Creat Clear Calc Estimated GFR Glucose Calcium Total Bilirubin AST ALT Alkaline Phosphatase Total Protein Albumin Hepatitis C RNA Quant HCV RNA (PCR) log10 Hepatitis C Genotype Patient hx anesthesia problems: none Family hx anesthesia problems: none Results Review: All pre-operative results and documents have been reviewed as part of the pre-operative evaluation. [facility] Past Medical History Medical History Hepatitis C Fracture of thumb, left, closed Family History Family History Mother Family history of diabetes mellitus in first degree relative Other Diabetes mellitus Social History Social History Years smoked: 27 Smoking status: Current every day smoker Tobacco type: cigarettes Additional smoking assessment comments: Progressively cutting back Alcohol intake: former Drinks per week: 60 Substance use: current Substance use type: marijuana, crack/cocaine, heroin, amphetamines, hallucinogens, opiates, painkillers, club/structural designer drugs, IV drugs, methamphetamine and prescription drug Other substance usage details: currently smokes marijuana- other is past Last use: 7 years on everything but marijuana Do You Feel Safe in your Home?: Yes Lack of Transportation: No Lack of Food: Never True Current Housing: I Do Not Have Housing Concerned About Future Housing: No Difficulty Paying Gas/Electric Bills: No Difficulty Paying for Meds: No Currently Unemployed: YES Education: Trade/Vocational Certificate Difficulty w/ Childcare or Family Care: No Spiritual care concerns: No Anes - Eval Final PreProcedure Day of Procedure 03/03/25 12:25 Patient weight: normal Heart: regular rate and rhythm Lungs: decreased breath sounds Airway: Mallampati scale class II Neurological: alert and oriented Last oral intake: >/= 8 hours ASA classification: IV Emergent: no Anesthetic plan: proceed Anesthesia type and monitoring: general and standard monitoring Results Review: All pre-operative results and documents have been reviewed as part of the pre-operative evaluation. Informed Consent: The patient's anesthetic plan and its attendant risks and benefits were discussed with the patient/family/POA. Questions were solicited and answers provided to the satisfaction of the patient/family/POA.
--- NOTE | 2025-03-03 12:36 | P.PNIM_ITS ---
Progress Note: A&P Assessment and Plan (1) Hepatocellular carcinoma: Code(s): C22.0 - Liver cell carcinoma Status: Acute Assessment and Plan: CT abdomen concerning due to multiple liver lesions, GI has been consulted to until patient transferred to tertiary care * abdominal MRI Impression: 7.6 x 5.0 x 6.8 cm irregular mass in the liver with direct invasion/extension into the right portal vein (compatible with tumor thrombus). This is suspicious for hepatocellular carcinoma given background cirrhotic change of the liver versus other neoplastic disease. Consider tissue sampling. Correlate with serum alpha-fetoprotein level. Moderate to large amount of abdominopelvic ascites. * alpha-fetaprotein pending * abdominal duplex ultrasound pending * unable to perform paracentesis to rule SBP due to no Radiology Services at this time hopefully can plan for tomorrow * added scheduled Percocet for better pain control as well as IVP * EGD scheduled 03/03 to evaluate for esophageal varices (2) Ascites: Qualifiers: Ascites type: due to alcoholic cirrhosis Qualified Code(s): K70.31 - Alcoholic cirrhosis of liver with ascites Code(s): R18.8 - Other ascites Status: Acute Assessment and Plan: * continue with Lasix and spironolactone * MRI with moderate size ascites * paracentesis on Monday03/03/2025 * meld 3 point score is 11 (3) Hepatitis C: Qualifiers: Viral hepatitis chronicity: unspecified Hepatic coma status: without hepatic coma Qualified Code(s): B19.20 - Unspecified viral hepatitis C without hepatic coma Code(s): B19.20 - Unspecified viral hepatitis C without hepatic coma Status: Acute Assessment and Plan: patient recently diagnosed with hepatitis-C * RNA pending * trend liver enzymes (4) Thrombocytopenia: Code(s): D69.6 - Thrombocytopenia, unspecified Status: Acute Assessment and Plan: platelets 97 side events POA now 76 is obviously secondary to patient's liver function hepatitis C possible carcinoma * monitor PLT * transfuse if < 15 * High risk bleeding precautions Plan Code status: Full code per patient DVT prophylaxis: SCD's Stress ulcer prophylaxis: Protonix 40 daily PT/OT notes: Ambulatory Disposition: patient continues admission for further evaluation of hepatitis C, ascites and possible hepatocellular carcinoma patient is currently on the wait list for transfer to [facility] tertiary care for hepatobiliary services. Time Spent With Patient Time with patient: 15 - 25 minutes Subjective Date/time seen: 03/03/25 12:36 Interval history: Patient is a 44-year-old male who was admitted for further evaluation and treatment of new onset hepatitis-C, ascites and concern for hepatocellular carcinoma currently on the wait list for [facility] but will be admitted for diagnostic testing and possible paracentesis awaiting for transfer. 03/03/2025: Patient stated pain was better controlled with adjustments to pain medication. ABD is less distended today with diuretic therapy planned paracentesis and EGD today. Patient with no other complaints still waiting on transfer to [facility] no beds at this time Review of Systems Review of Systems: All systems reviewed & are unremarkable except as noted in HPI and below Exam Const: General: comfortable and no acute distress HENMT: Mouth: Yes moist mucous membranes Eyes: General: appearance normal, both eyes and all related structures Sclera: sclerae normal Pupils: Equal, round and reactive pupils present Neck: Neck: supple and no JVD Resp: Effort & Inspection: normal respiratory effort Auscultation: clear to auscultation bilaterally Cardio: Rate: regular rate Rhythm: regular rhythm GI: Inspection: distended Other: Umbilical hernia Skin: General skin exam: normal color Wounds: no wounds Neuro: General: gait normal Cranial nerves: Yes Equal, round and reactive pupils present Speech: normal speech Motor exam (neuro): 5/5 motor strength present throughout Sensory Exam: normal sensation Extrem: General: normal to inspection Psych: Mental Status: mental status grossly normal Affect: normal affect Objective Data Vital Signs Vital Signs: Vital Signs - 24 hr 03/02/25 15:07 03/02/25 21:52 03/03/25 08:00 Temperature 96.9 F L 97.1 F L Pulse Rate 101 H 103 H Respiratory Rate 16 18 Blood Pressure 126/72 121/67 Pulse Oximetry 98 99 Oxygen Delivery Room Air 03/03/25 11:55 03/03/25 12:04 Temperature 97.2 F L 97.1 F L Pulse Rate 91 103 H Respiratory Rate 18 18 Blood Pressure 114/73 121/67 Pulse Oximetry 100 99 Oxygen Delivery Room Air Room Air Intake/Output Intake/Output: Intake & Output 02/28/25 03/01/25 03/02/25 03/03/25 23:59 23:59 23:59 23:59 Intake Total 5174 669 0452 200 Output Total 0 Balance 6652 304 9496 200 Meds/Results Medications: Active Medications Generic Name Dose Route Start Last Admin Trade Name Darinelq PRN Reason Stop Dose Admin Acetaminophen 650 mg 03/01/25 09:38 Acetaminophen 325 Mg Tablet PO Q4H PRN Mild Pain (1-3) or Fever Furosemide 40 mg 02/28/25 10:50 03/03/25 09:25 Furosemide 40 Mg Tablet PO 40 mg DAILY TA Administration Hydromorphone HCl 1 mg 03/02/25 12:39 03/03/25 07:53 Hydromorphone Hcl Inj (*Crx) 2 Mg/Ml Vial IV PUSH 1 mg Q3H PRN Administration Pain Rated 7-10 Lactated Ringer's 1,000 mls @ 150 mls/hr 03/03/25 12:05 03/03/25 12:07 Lr - Lactated Ringers Iv IV CONT 150 mls/hr .Q6H40M TA Administration Nicotine 1 patch 02/25/25 20:35 03/03/25 09:25 Nicotine (*Pbkc) 21 Mg Patch TRANSDERM 1 patch DAILY TA Administration Ondansetron HCl 4 mg 03/01/25 09:38 Ondansetron Inj 4 Mg/2 Ml Vial IV PUSH Q6H PRN Nausea And Vomiting Oxycodone HCl 5 mg 03/02/25 18:00 03/03/25 06:07 Oxycodone Hcl (*Crx) 5 Mg Tab Ir PO 5 mg Q6HR TA Administration Senna/Docusate Sodium 1 tab 03/02/25 21:00 03/02/25 20:12 Senna/Docusate Sodium Tablet PO 1 tab HS TA Administration Spironolactone 100 mg 02/28/25 10:50 03/03/25 09:25 Spironolactone 50 Mg Tablet PO 100 mg QAM TA Administration Radiology Results: ITS Impressions Abdomen/Pelvis CT 02/24/25 16:31 IMPRESSION: Cirrhosis. Multiple liver lesions concerning for malignancy. 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 Esophagitis/gastritis. Moderate volume ascites. Abdomen MRI 03/01/25 14:32 Impression: 7.6 x 5.0 x 6.8 cm irregular mass in the liver with direct invasion/extension into the right portal vein (compatible with tumor thrombus). This is suspicious for hepatocellular carcinoma given background cirrhotic change of the liver versus other neoplastic disease. Consider tissue sampling. Correlate with serum alpha-fetoprotein level. Moderate to large amount of abdominopelvic ascites. Gallbladder wall thickening is probably reactive due to the presence of ascites. Vascular Ultrasound 03/01/25 14:44 Impression: Cirrhotic liver with 6.0 x 4.0 x 5.0 cm hypoechoic mass towards the dome, compatible with hepatocellular carcinoma versus other neoplastic lesion. Reversal of normal direction of flow in the main portal vein. Gallbladder wall thickening is probably related to the presence of moderate to large amount of abdominal ascites. No gallstone evident. Labs Labs: Laboratory Results - last 24 hr 02/28/25 03/03/25 03/03/25 11:12 06:15 07:17 WBC 5.2 RBC 3.89 L Hgb 12.4 L Hct 37.3 L MCV 95.9 MCH 31.9 MCHC 33.2 RDW 13.7 Plt Count 78 L MPV 11.7 H Immature Gran % (Auto) 0.0 Neut % (Auto) 49.7 Lymph % (Auto) 36.1 [place] % (Auto) 11.1 H Eos % (Auto) 2.5 Baso % (Auto) 0.6 Lymph # (Auto) 1.89 [place] # (Auto) 0.6 Eos # (Auto) 0.1 Baso # (Auto) 0.0 Abs Immat Gran (auto) 0.00 Absolute Neuts (auto) 2.6 Absolute Nucleated RBC 0.000 Nucleated RBC % 0.0 % Immature Plt Fraction 7.3 PT INR APTT Sodium 132 L Potassium 4.0 Chloride 99 Carbon Dioxide 26 Anion Gap 7 BUN 7 L Creatinine 0.65 L Estim Creat Clear Calc 113 Estimated GFR > 60 Glucose 81 Calcium 8.7 Total Bilirubin 1.2 AST 126 H ALT 101 H Alkaline Phosphatase 140 H Total Protein 8.2 Albumin 3.2 L Hepatitis C Genotype 3 03/03/25 08:32 WBC RBC Hgb Hct MCV MCH MCHC RDW Plt Count MPV Immature Gran % (Auto) Neut % (Auto) Lymph % (Auto) [place] % (Auto) Eos % (Auto) Baso % (Auto) Lymph # (Auto) [place] # (Auto) Eos # (Auto) Baso # (Auto) Abs Immat Gran (auto) Absolute Neuts (auto) Absolute Nucleated RBC Nucleated RBC % % Immature Plt Fraction PT 16.4 H INR 1.3 APTT 32.1 Sodium Potassium Chloride Carbon Dioxide Anion Gap BUN Creatinine Estim Creat Clear Calc Estimated GFR Glucose Calcium Total Bilirubin AST ALT Alkaline Phosphatase Total Protein Albumin Hepatitis C Genotype Quality VTE Prophylaxis VTE prophylaxis: mechanical ordered -Patient's previous records reviewed on admission -ER notes reviewed in detail on admission -discussed all findings and current treatment plan with patient/Family/POA -Consultations reviewed for recommendations -Patient's disposition for safe discharge discussed with bottle caser Dictation performed by [employer] direct speech recognition software, therefore district court justice variants and typographical errors may occur. Hospitalist MIPS Advance Care Plan I have confirmed that the patient's Advanced Care Plan is present, code status is documented, or surrogate decision maker is listed in patient medical record.: Yes Medication Reconciliation I have utilized all available resources to obtain, update and review the patients current medications (includes all prescriptions, OTC, herbals, cannabis, and nutritional supplements).: Yes The patient is not eligible for med reconciliation; the patient is in a emergent medical situation where delaying treatment would jeopardize the patients health.: No
--- NOTE | 2025-03-03 14:06 | PC.NURSE ---
Returned from GI Lab per faizan.
--- NOTE | 2025-03-03 15:08 | PC.NURSE ---
To Ultrasound per stretcher for Paracentesis.
--- NOTE | 2025-03-03 15:43 | CY_PTH ---
PATIENT: Db Feliz LOC: [id number] U#:[id number] AGE/SX: 44/M ROOM: 317 RE02/28/[address]: Brian Fang PA-C : 1980 BED: 02 DIS: 03/04/2025 SPEC #: [id number] RECD: 03/04/25 07:58 STATUS: LINA REQ #: [id number] MELISA: 03/03/25 15:[address]: Marek,Suim Shultz DEPT: [facility] Cytology RECD BY: Bebo Pimentel ENTERED: 03/04/25 07:58 SP TYPE: Cytology OTHR DR: DARIUSZ Ayala MD Jennifer M.J. Clark, APRN [facility] Hussain Cowan MD Tissues: A - Ascites Fluid Procedures: Hematoxylin and Eosin Stain Cell Block Cytopathology Cytospin
--- NOTE | 2025-03-03 15:53 | PC.NURSE ---
Returned from Ultrasound per stretcher.
--- NOTE | 2025-03-03 17:02 | P.PNGI_ITS ---
Progress Note: A&P Assessment and Plan (1) Ascites: Qualifiers: Ascites type: due to alcoholic cirrhosis Qualified Code(s): K70.31 - Alcoholic cirrhosis of liver with ascites Code(s): R18.8 - Other ascites Status: Acute Assessment and Plan: This morning, the patient underwent primary prophylaxis for variceal bleeding with the placement of three esophageal bands. This intervention was chosen due to a relative contraindication for beta-nikolay therapy, due to ascites and diuretic regimen which may render him hypotensive. This afternoon, 650 mL of clear ascitic fluid was successfully drained. We are awaiting the results of the ascitic fluid cell count. If the PMN count is greater than 250/mm3, we will proceed with treatment for spontaneous bacterial peritonitis . Assuming SBP is ruled out, the patient is expected to be discharged tomorrow. We will be consulting with [facility] hepatology for ongoing management, which is anticipated to be palliative given the advanced nature of his liver disease and the identified liver tumor. Subjective Date/time seen: 03/03/25 17:02 Objective Data Vital Signs Vital Signs: Vital Signs - 24 hr 03/02/25 21:52 03/03/25 08:00 03/03/25 08:00 Temperature 97.1 F L 97.2 F L Pulse Rate 103 H 104 H Respiratory Rate 18 18 Blood Pressure 121/67 126/74 Pulse Oximetry 99 100 Oxygen Delivery Room Air 03/03/25 11:55 03/03/25 12:04 03/03/25 13:35 Temperature 97.2 F L 97.1 F L Pulse Rate 91 103 H 100 Respiratory Rate 18 18 20 Blood Pressure 114/73 121/67 137/85 Pulse Oximetry 100 99 100 Oxygen Delivery Room Air Room Air Room Air 03/03/25 13:45 03/03/25 13:55 Temperature Pulse Rate 106 H 104 H Respiratory Rate 20 19 Blood Pressure 130/84 119/79 Pulse Oximetry 100 100 Oxygen Delivery Room Air Room Air Intake/Output Intake/Output: Intake & Output 02/28/25 03/01/25 03/02/25 03/03/25 23:59 23:59 23:59 23:59 Intake Total 6834 057 1976 300 Output Total 0 650 Balance 7920 304 6231 -350 Meds/Results Medications: Active Medications Generic Name Dose Route Start Last Admin Trade Name Freq PRN Reason Stop Dose Admin Acetaminophen 650 mg 03/01/25 09:38 Acetaminophen 325 Mg Tablet PO Q4H PRN Mild Pain (1-3) or Fever Furosemide 40 mg 02/28/25 10:50 03/03/25 09:25 Furosemide 40 Mg Tablet PO 40 mg DAILY TA Administration Hydromorphone HCl 1 mg 03/02/25 12:39 03/03/25 14:11 Hydromorphone Hcl Inj (*Crx) 2 Mg/Ml Vial IV PUSH 1 mg Q3H PRN Administration Pain Rated 7-10 Nicotine 1 patch 02/25/25 20:35 03/03/25 09:25 Nicotine (*Pbkc) 21 Mg Patch TRANSDERM 1 patch DAILY TA Administration Ondansetron HCl 4 mg 03/01/25 09:38 Ondansetron Inj 4 Mg/2 Ml Vial IV PUSH Q6H PRN Nausea And Vomiting Oxycodone HCl 5 mg 03/02/25 18:00 03/03/25 06:07 Oxycodone Hcl (*Crx) 5 Mg Tab Ir PO 5 mg Q6HR TA Administration Senna/Docusate Sodium 1 tab 03/02/25 21:00 03/02/25 20:12 Senna/Docusate Sodium Tablet PO 1 tab HS TA Administration Spironolactone 100 mg 02/28/25 10:50 03/03/25 09:25 Spironolactone 50 Mg Tablet PO 100 mg QAM TA Administration Radiology Results: ITS Impressions Abdomen/Pelvis CT 02/24/25 16:31 IMPRESSION: Cirrhosis. Multiple liver lesions concerning for malignancy. 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 Esophagitis/gastritis. Moderate volume ascites. Abdomen MRI 03/01/25 14:32 Impression: 7.6 x 5.0 x 6.8 cm irregular mass in the liver with direct invasion/extension into the right portal vein (compatible with tumor thrombus). This is suspicious for hepatocellular carcinoma given background cirrhotic change of the liver versus other neoplastic disease. Consider tissue sampling. Correlate with serum alpha-fetoprotein level. Moderate to large amount of abdominopelvic ascites. Gallbladder wall thickening is probably reactive due to the presence of ascites. Vascular Ultrasound 03/01/25 14:44 Impression: Cirrhotic liver with 6.0 x 4.0 x 5.0 cm hypoechoic mass towards the dome, compatible with hepatocellular carcinoma versus other neoplastic lesion. Reversal of normal direction of flow in the main portal vein. Gallbladder wall thickening is probably related to the presence of moderate to large amount of abdominal ascites. No gallstone evident. Labs Labs: Laboratory Results - last 24 hr 02/28/25 03/03/25 03/03/25 11:12 06:15 07:17 WBC 5.2 RBC 3.89 L Hgb 12.4 L Hct 37.3 L MCV 95.9 MCH 31.9 MCHC 33.2 RDW 13.7 Plt Count 78 L MPV 11.7 H Immature Gran % (Auto) 0.0 Neut % (Auto) 49.7 Lymph % (Auto) 36.1 [place] % (Auto) 11.1 H Eos % (Auto) 2.5 Baso % (Auto) 0.6 Lymph # (Auto) 1.89 [place] # (Auto) 0.6 Eos # (Auto) 0.1 Baso # (Auto) 0.0 Abs Immat Gran (auto) 0.00 Absolute Neuts (auto) 2.6 Absolute Nucleated RBC 0.000 Nucleated RBC % 0.0 % Immature Plt Fraction 7.3 PT INR APTT Sodium 132 L Potassium 4.0 Chloride 99 Carbon Dioxide 26 Anion Gap 7 BUN 7 L Creatinine 0.65 L Estim Creat Clear Calc 113 Estimated GFR > 60 Glucose 81 Calcium 8.7 Total Bilirubin 1.2 AST 126 H ALT 101 H Alkaline Phosphatase 140 H Total Protein 8.2 Albumin 3.2 L Hepatitis C Genotype 3 03/03/25 08:32 WBC RBC Hgb Hct MCV MCH MCHC RDW Plt Count MPV Immature Gran % (Auto) Neut % (Auto) Lymph % (Auto) [place] % (Auto) Eos % (Auto) Baso % (Auto) Lymph # (Auto) [place] # (Auto) Eos # (Auto) Baso # (Auto) Abs Immat Gran (auto) Absolute Neuts (auto) Absolute Nucleated RBC Nucleated RBC % % Immature Plt Fraction PT 16.4 H INR 1.3 APTT 32.1 Sodium Potassium Chloride Carbon Dioxide Anion Gap BUN Creatinine Estim Creat Clear Calc Estimated GFR Glucose Calcium Total Bilirubin AST ALT Alkaline Phosphatase Total Protein Albumin Hepatitis C Genotype
[2025-03-03 17:23] LABS: Appearance Peritoneal Fluid Clear (Clear); Color Peritoneal Fluid Yellow (Colorless); Nucleated Cells Peritoneal Flu 269 /uL (0-500); Source Peritoneal Fluid Peritoneal Fluid
[2025-03-03 17:24] LABS: Lymphocytes Peritoneal Fluid 23 %; Mesothelial Cells Peritoneal Fluid 1 %; Monocytes Peritoneal Fluid 75 %; Neutrophils Peritoneal Fluid 1 % (0-25)
[2025-03-03] MEDS: SENNA/DOCUSATE SODIUM TABLET 1 TAB PO (20:25)
[2025-03-04] VITALS: BP 118/76; PULSE 101; RESP 20; TEMP 36.2; O2SAT 99
[2025-03-04] MEDS: oxyCODONE HCL (*CRX) 5 MG TAB IR PO ×3 (00:43→12:28)
[2025-03-04] MEDS: HYDROmorphone HCL INJ (*CRX) 2 MG/ML VIAL 1 MG IV PUSH ×3 (04:30→11:44)
[2025-03-04 05:43] LABS: Hematocrit 36.8 % (42.0-52.0); Hemoglobin 12.5 g/dL (14.0-18.0); Immature Granulocyte Percent A 0.3 % (0-0.5); Immature Platelet Fraction Pct 8.3 % (0.9-11.2); Lymphocytes Absolute Auto 1.54 K/mm3 (0.9-3.2); Mean Corpuscular HGB Conc 34.0 g/dl (32-36); Mean Corpuscular Hemoglobin 32.5 pg (26-34); Mean Corpuscular Volume 95.6 fl (80-100); Nucleated Red Blood Cells Absolute Auto 0.000 K/mm3 (0.0-0.012); Nucleated Red Blood Cells Perc 0.0 % (0.0-0.2); Platelet Count Result 83 k/mm3 (150-375); Red Blood Count 3.85 M/mm3 (4.6-6.20); White Blood Count 5.8 K/mm3 (4.5-10.0)
[2025-03-04 06:05] LABS: Alanine Aminotransferase 105 U/L (6-50); Albumin Level 3.6 g/dL (3.5-5.1); Alkaline Phosphatase 126 U/L (38-126); Anion Gap 6 mmol/L (4-12); Aspartate Amino Transferase 127 U/L (17-59); Bilirubin,Total 1.5 mg/dL (0.2-1.3); Blood Urea Nitrogen 8 mg/dL (9-20); Calcium 8.9 mg/dL (8.4-10.2); Carbon Dioxide 29 mmol/L (22-30); Chloride 93 mmol/L (98-107); Estimated CRCL calculation 97 ml/min; Estimated Glomerular Filt Rate > 60; Glucose 111 mg/dL (65-110); Potassium 4.4 mmol/L (3.4-5.0); Sodium 128 mmol/L (137-145); Total Protein 8.9 g/dL (6.3-8.2)
--- NOTE | 2025-03-04 07:15 | P.PNGI_ITS ---
Progress Note: A&P Assessment and Plan (1) Ascites: Qualifiers: Ascites type: due to alcoholic cirrhosis Qualified Code(s): K70.31 - Alcoholic cirrhosis of liver with ascites Code(s): R18.8 - Other ascites Status: Acute Assessment and Plan: The patient's fluid analysis did not reveal increased polymorphonuclears cells. He had a good night and did not have symptoms related to variceal ligation. He is safe to go home on a soft/full liquid diet for 24 more hours and then have a low-sodium diet. Formal referral was placed for [facility] hepatology service for palliative care. Subjective Date/time seen: 03/04/25 07:15 Objective Data Vital Signs Vital Signs: Vital Signs - 24 hr 03/03/25 08:00 03/03/25 08:00 03/03/25 11:55 Temperature 97.2 F L 97.2 F L Pulse Rate 104 H 91 Respiratory Rate 18 18 Blood Pressure 126/74 114/73 Pulse Oximetry 100 100 Oxygen Delivery Room Air Room Air 03/03/25 12:04 03/03/25 13:35 03/03/25 13:45 Temperature 97.1 F L Pulse Rate 103 H 100 106 H Respiratory Rate 18 20 20 Blood Pressure 121/67 137/85 130/84 Pulse Oximetry 99 100 100 Oxygen Delivery Room Air Room Air Room Air 03/03/25 13:55 03/03/25 20:16 03/03/25 20:25 Temperature 97.8 F Pulse Rate 104 H 110 H Respiratory Rate 19 20 Blood Pressure 119/79 115/74 Pulse Oximetry 100 99 99 Oxygen Delivery Room Air Room Air 03/04/25 00:00 Temperature 97.2 F L Pulse Rate 101 H Respiratory Rate 20 Blood Pressure 118/76 Pulse Oximetry 99 Oxygen Delivery Intake/Output Intake/Output: Intake & Output 03/01/25 03/02/25 03/03/25 03/04/25 23:59 23:59 23:59 23:59 Intake Total 870 0 540 Output Total 0 650 Balance 870 2089 -110 Meds/Results Medications: Active Medications Generic Name Dose Route Start Last Admin Trade Name Freq PRN Reason Stop Dose Admin Acetaminophen 650 mg 03/01/25 09:38 Acetaminophen 325 Mg Tablet PO Q4H PRN Mild Pain (1-3) or Fever Furosemide 40 mg 02/28/25 10:50 03/03/25 09:25 Furosemide 40 Mg Tablet PO 40 mg DAILY TA Administration Hydromorphone HCl 1 mg 03/02/25 12:39 03/04/25 04:30 Hydromorphone Hcl Inj (*Crx) 2 Mg/Ml Vial IV PUSH 1 mg Q3H PRN Administration Pain Rated 7-10 Nicotine 1 patch 02/25/25 20:35 03/03/25 09:25 Nicotine (*Pbkc) 21 Mg Patch TRANSDERM 1 patch DAILY TA Administration Ondansetron HCl 4 mg 03/01/25 09:38 Ondansetron Inj 4 Mg/2 Ml Vial IV PUSH Q6H PRN Nausea And Vomiting Oxycodone HCl 5 mg 03/02/25 18:00 03/04/25 05:53 Oxycodone Hcl (*Crx) 5 Mg Tab Ir PO 5 mg Q6HR TA Administration Senna/Docusate Sodium 1 tab 03/02/25 21:00 03/03/25 20:25 Senna/Docusate Sodium Tablet PO 1 tab HS TA Administration Spironolactone 100 mg 02/28/25 10:50 03/03/25 09:25 Spironolactone 50 Mg Tablet PO 100 mg QAM TA Administration Radiology Results: ITS Impressions Abdomen/Pelvis CT 02/24/25 16:31 IMPRESSION: Cirrhosis. Multiple liver lesions concerning for malignancy. 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 Esophagitis/gastritis. Moderate volume ascites. Abdomen MRI 03/01/25 14:32 Impression: 7.6 x 5.0 x 6.8 cm irregular mass in the liver with direct invasion/extension into the right portal vein (compatible with tumor thrombus). This is suspicious for hepatocellular carcinoma given background cirrhotic change of the liver versus other neoplastic disease. Consider tissue sampling. Correlate with serum alpha-fetoprotein level. Moderate to large amount of abdominopelvic ascites. Gallbladder wall thickening is probably reactive due to the presence of ascites. Vascular Ultrasound 03/01/25 14:44 Impression: Cirrhotic liver with 6.0 x 4.0 x 5.0 cm hypoechoic mass towards the dome, compatible with hepatocellular carcinoma versus other neoplastic lesion. Reversal of normal direction of flow in the main portal vein. Gallbladder wall thickening is probably related to the presence of moderate to large amount of abdominal ascites. No gallstone evident. Paracentesis Ultrasound 03/03/25 17:57 Impression: 1. Technically successful ultrasound guided right sided paracentesis yielding 650 cc of tea-colored ascites, which was sent for the requested studies. 2. No immediate complications. Labs Labs: Laboratory Results - last 24 hr 03/03/25 03/03/25 03/03/25 07:17 08:32 15:57 WBC 5.2 RBC 3.89 L Hgb 12.4 L Hct 37.3 L MCV 95.9 MCH 31.9 MCHC 33.2 RDW 13.7 Plt Count 78 L MPV 11.7 H Immature Gran % (Auto) 0.0 Neut % (Auto) 49.7 Lymph % (Auto) 36.1 [place] % (Auto) 11.1 H Eos % (Auto) 2.5 Baso % (Auto) 0.6 Lymph # (Auto) 1.89 [place] # (Auto) 0.6 Eos # (Auto) 0.1 Baso # (Auto) 0.0 Abs Immat Gran (auto) 0.00 Absolute Neuts (auto) 2.6 Absolute Nucleated RBC 0.000 Nucleated RBC % 0.0 % Immature Plt Fraction 7.3 PT 16.4 H INR 1.3 APTT 32.1 Sodium Potassium Chloride Carbon Dioxide Anion Gap BUN Creatinine Estim Creat Clear Calc Estimated GFR Glucose Calcium Total Bilirubin AST ALT Alkaline Phosphatase Total Protein Albumin Peritoneal Source Peritoneal fluid Peritoneal Color Yellow Peritoneal Appearance Clear Peritoneal RBC < 2000 Periton Nuc Cells 269 Periton Neutrophils 1 Periton Lymphocytes 23 Peritoneal Monocytes 75 [place] Mesothelial 1 03/04/25 05:15 WBC 5.8 RBC 3.85 L Hgb 12.5 L Hct 36.8 L MCV 95.6 MCH 32.5 MCHC 34.0 RDW 13.6 Plt Count 83 L MPV 12.1 H Immature Gran % (Auto) 0.3 Neut % (Auto) 61.6 Lymph % (Auto) 26.7 [place] % (Auto) 9.0 H Eos % (Auto) 1.7 Baso % (Auto) 0.7 Lymph # (Auto) 1.54 [place] # (Auto) 0.5 Eos # (Auto) 0.1 Baso # (Auto) 0.0 Abs Immat Gran (auto) 0.02 Absolute Neuts (auto) 3.6 Absolute Nucleated RBC 0.000 Nucleated RBC % 0.0 % Immature Plt Fraction 8.3 PT INR APTT Sodium 128 L Potassium 4.4 Chloride 93 L Carbon Dioxide 29 Anion Gap 6 BUN 8 L Creatinine 0.68 L Estim Creat Clear Calc 97 Estimated GFR > 60 Glucose 111 H Calcium 8.9 Total Bilirubin 1.5 H AST 127 H ALT 105 H Alkaline Phosphatase 126 Total Protein 8.9 H Albumin 3.6 Peritoneal Source Peritoneal Color Peritoneal Appearance Peritoneal RBC Periton Nuc Cells Periton Neutrophils Periton Lymphocytes Peritoneal Monocytes Periton Mesothelial
--- NOTE | 2025-03-04 07:42 | P.PNIM_ITS ---
Progress Note: A&P Assessment and Plan (1) Hepatocellular carcinoma: Code(s): C22.0 - Liver cell carcinoma Status: Acute Assessment and Plan: CT abdomen concerning due to multiple liver lesions, GI has been consulted to until patient transferred to tertiary care * abdominal MRI Impression: 7.6 x 5.0 x 6.8 cm irregular mass in the liver with direct invasion/extension into the right portal vein (compatible with tumor thrombus). This is suspicious for hepatocellular carcinoma given background cirrhotic change of the liver versus other neoplastic disease. Consider tissue sampling. Correlate with serum alpha-fetoprotein level. Moderate to large amount of abdominopelvic ascites. * Alpha-fetaprotein pending * Abdominal duplex ultrasound pending * Unable to perform paracentesis to rule SBP due to no Radiology Services at this time hopefully can plan for tomorrow * Added scheduled Percocet for better pain control as well as IVP * EGD scheduled 03/03 to evaluate for esophageal varices (2) Ascites: Qualifiers: Ascites type: due to alcoholic cirrhosis Qualified Code(s): K70.31 - Alcoholic cirrhosis of liver with ascites Code(s): R18.8 - Other ascites Status: Acute Assessment and Plan: * Continue with Lasix and spironolactone * MRI with moderate size ascites * Paracentesis on Monday03/03/2025 * Meld 3 point score is 11 (3) Hepatitis C: Qualifiers: Viral hepatitis chronicity: unspecified Hepatic coma status: without hepatic coma Qualified Code(s): B19.20 - Unspecified viral hepatitis C without hepatic coma Code(s): B19.20 - Unspecified viral hepatitis C without hepatic coma Status: Acute Assessment and Plan: * Patient recently diagnosed with hepatitis-C * RNA pending * Trend liver enzymes (4) Thrombocytopenia: Code(s): D69.6 - Thrombocytopenia, unspecified Status: Acute Assessment and Plan: * Platelets 97 side events POA now 76 is obviously secondary to patient's liver function hepatitis C possible carcinoma * Monitor PLT * Transfuse if < 15 * High risk bleeding precautions Plan Code status: Full code per patient DVT prophylaxis: SCD's Stress ulcer prophylaxis: Protonix 40 daily PT/OT notes: Ambulatory Disposition: patient continues admission for further evaluation of hepatitis C, ascites and possible hepatocellular carcinoma patient is currently on the wait list for transfer to [facility] tertiary care for hepatobiliary services. Subjective Date/time seen: 03/04/25 07:42 Interval history: Patient is a 44-year-old male who was admitted for further evaluation and treatment of new onset hepatitis-C, ascites and concern for hepatocellular carcinoma currently on the wait list for [facility] but will be admitted for diagnostic testing and possible paracentesis awaiting for transfer. 03/04/2025 Review of Systems Review of Systems: All systems reviewed & are unremarkable except as noted in HPI and below Exam Const: General: comfortable and no acute distress HENMT: Mouth: Yes moist mucous membranes Eyes: General: appearance normal, both eyes and all related structures Sclera: sclerae normal Pupils: Equal, round and reactive pupils present Neck: Neck: supple and no JVD Resp: Effort & Inspection: normal respiratory effort Auscultation: clear to auscultation bilaterally Cardio: Rate: regular rate Rhythm: regular rhythm GI: Inspection: distended Other: Umbilical hernia Skin: General skin exam: normal color Wounds: no wounds Neuro: General: gait normal Cranial nerves: Yes Equal, round and reactive pupils present Speech: normal speech Motor exam (neuro): 5/5 motor strength present throughout Sensory Exam: normal sensation Extrem: General: normal to inspection Psych: Mental Status: mental status grossly normal Affect: normal affect Objective Data Vital Signs Vital Signs: Vital Signs - 24 hr 03/03/25 08:00 03/03/25 08:00 03/03/25 11:55 Temperature 97.2 F L 97.2 F L Pulse Rate 104 H 91 Respiratory Rate 18 18 Blood Pressure 126/74 114/73 Pulse Oximetry 100 100 Oxygen Delivery Room Air Room Air 03/03/25 12:04 03/03/25 13:35 03/03/25 13:45 Temperature 97.1 F L Pulse Rate 103 H 100 106 H Respiratory Rate 18 20 20 Blood Pressure 121/67 137/85 130/84 Pulse Oximetry 99 100 100 Oxygen Delivery Room Air Room Air Room Air 03/03/25 13:55 03/03/25 20:16 03/03/25 20:25 Temperature 97.8 F Pulse Rate 104 H 110 H Respiratory Rate 19 20 Blood Pressure 119/79 115/74 Pulse Oximetry 100 99 99 Oxygen Delivery Room Air Room Air 03/04/25 00:00 Temperature 97.2 F L Pulse Rate 101 H Respiratory Rate 20 Blood Pressure 118/76 Pulse Oximetry 99 Oxygen Delivery Intake/Output Intake/Output: Intake & Output 03/01/25 03/02/25 03/03/25 03/04/25 23:59 23:59 23:59 23:59 Intake Total 870 2090 540 Output Total 0 650 Balance 870 2090 -110 Meds/Results Medications: Active Medications Generic Name Dose Route Start Last Admin Trade Name Freq PRN Reason Stop Dose Admin Acetaminophen 650 mg 03/01/25 09:38 Acetaminophen 325 Mg Tablet PO Q4H PRN Mild Pain (1-3) or Fever Furosemide 40 mg 02/28/25 10:50 03/03/25 09:25 Furosemide 40 Mg Tablet PO 40 mg DAILY TA Administration Hydromorphone HCl 1 mg 03/02/25 12:39 03/04/25 04:30 Hydromorphone Hcl Inj (*Crx) 2 Mg/Ml Vial IV PUSH 1 mg Q3H PRN Administration Pain Rated 7-10 Nicotine 1 patch 02/25/25 20:35 03/03/25 09:25 Nicotine (*Pbkc) 21 Mg Patch TRANSDERM 1 patch DAILY TA Administration Ondansetron HCl 4 mg 03/01/25 09:38 Ondansetron Inj 4 Mg/2 Ml Vial IV PUSH Q6H PRN Nausea And Vomiting Oxycodone HCl 5 mg 03/02/25 18:00 03/04/25 05:53 Oxycodone Hcl (*Crx) 5 Mg Tab Ir PO 5 mg Q6HR TA Administration Senna/Docusate Sodium 1 tab 03/02/25 21:00 03/03/25 20:25 Senna/Docusate Sodium Tablet PO 1 tab HS TA Administration Spironolactone 100 mg 02/28/25 10:50 03/03/25 09:25 Spironolactone 50 Mg Tablet PO 100 mg QAM TA Administration Radiology Results: ITS Impressions Abdomen/Pelvis CT 02/24/25 16:31 IMPRESSION: Cirrhosis. Multiple liver lesions concerning for malignancy. 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 Esophagitis/gastritis. Moderate volume ascites. Abdomen MRI 03/01/25 14:32 Impression: 7.6 x 5.0 x 6.8 cm irregular mass in the liver with direct invasion/extension into the right portal vein (compatible with tumor thrombus). This is suspicious for hepatocellular carcinoma given background cirrhotic change of the liver versus other neoplastic disease. Consider tissue sampling. Correlate with serum alpha-fetoprotein level. Moderate to large amount of abdominopelvic ascites. Gallbladder wall thickening is probably reactive due to the presence of ascites. Vascular Ultrasound 03/01/25 14:44 Impression: Cirrhotic liver with 6.0 x 4.0 x 5.0 cm hypoechoic mass towards the dome, compatible with hepatocellular carcinoma versus other neoplastic lesion. Reversal of normal direction of flow in the main portal vein. Gallbladder wall thickening is probably related to the presence of moderate to large amount of abdominal ascites. No gallstone evident. Paracentesis Ultrasound 03/03/25 17:57 Impression: 1. Technically successful ultrasound guided right sided paracentesis yielding 650 cc of tea-colored ascites, which was sent for the requested studies. 2. No immediate complications. Labs Labs: Laboratory Results - last 24 hr 03/03/25 03/03/25 03/03/25 07:17 08:32 15:57 WBC 5.2 RBC 3.89 L Hgb 12.4 L Hct 37.3 L MCV 95.9 MCH 31.9 MCHC 33.2 RDW 13.7 Plt Count 78 L MPV 11.7 H Immature Gran % (Auto) 0.0 Neut % (Auto) 49.7 Lymph % (Auto) 36.1 [place] % (Auto) 11.1 H Eos % (Auto) 2.5 Baso % (Auto) 0.6 Lymph # (Auto) 1.89 [place] # (Auto) 0.6 Eos # (Auto) 0.1 Baso # (Auto) 0.0 Abs Immat Gran (auto) 0.00 Absolute Neuts (auto) 2.6 Absolute Nucleated RBC 0.000 Nucleated RBC % 0.0 % Immature Plt Fraction 7.3 PT 16.4 H INR 1.3 APTT 32.1 Sodium Potassium Chloride Carbon Dioxide Anion Gap BUN Creatinine Estim Creat Clear Calc Estimated GFR Glucose Calcium Total Bilirubin AST ALT Alkaline Phosphatase Total Protein Albumin Peritoneal Source Peritoneal fluid Peritoneal Color Yellow Peritoneal Appearance Clear Peritoneal RBC < 2000 Periton Nuc Cells 269 Periton Neutrophils 1 Periton Lymphocytes 23 Peritoneal Monocytes 75 Periton Mesothelial 1 03/04/25 05:15 WBC 5.8 RBC 3.85 L Hgb 12.5 L Hct 36.8 L MCV 95.6 MCH 32.5 MCHC 34.0 RDW 13.6 Plt Count 83 L MPV 12.1 H Immature Gran % (Auto) 0.3 Neut % (Auto) 61.6 Lymph % (Auto) 26.7 [place] % (Auto) 9.0 H Eos % (Auto) 1.7 Baso % (Auto) 0.7 Lymph # (Auto) 1.54 [place] # (Auto) 0.5 Eos # (Auto) 0.1 Baso # (Auto) 0.0 Abs Immat Gran (auto) 0.02 Absolute Neuts (auto) 3.6 Absolute Nucleated RBC 0.000 Nucleated RBC % 0.0 % Immature Plt Fraction 8.3 PT INR APTT Sodium 128 L Potassium 4.4 Chloride 93 L Carbon Dioxide 29 Anion Gap 6 BUN 8 L Creatinine 0.68 L Estim Creat Clear Calc 97 Estimated GFR > 60 Glucose 111 H Calcium 8.9 Total Bilirubin 1.5 H AST 127 H ALT 105 H Alkaline Phosphatase 126 Total Protein 8.9 H Albumin 3.6 Peritoneal Source Peritoneal Color Peritoneal Appearance Peritoneal RBC Periton Nuc Cells Periton Neutrophils Periton Lymphocytes Peritoneal Monocytes Periton Mesothelial Quality VTE Prophylaxis VTE prophylaxis: mechanical ordered
[2025-03-04] MEDS: FUROSEMIDE 40 MG TABLET PO (08:50)
[2025-03-04] MEDS: SPIRONOLACTONE 50 MG TABLET 100 MG PO (08:50)
[2025-03-04] MEDS: NICOTINE (*PBKC) 21 MG PATCH 1 PATCH TRANSDERM (08:50)
--- NOTE | 2025-03-04 11:50 | PC.NURSE ---
C/O abdominal pain rated 10 on pain scale. Requested Dilaudid IVP for pain control. Roxicodone scheduled for 1200 not administered at this time. Continue to monitor.
--- NOTE | 2025-03-04 13:19 | P.DS_ITS ---
DS: Admitting Diagnosis Discharge Date 03/04/2025 Admitting Diagnosis Hepatocellular carcinoma DS: Discharge Diagnosis Discharge Diagnosis (1) Hepatocellular carcinoma: Code(s): C22.0 - Liver cell carcinoma Status: Acute (2) Ascites: Qualifiers: Ascites type: due to alcoholic cirrhosis Qualified Code(s): K70.31 - Alcoholic cirrhosis of liver with ascites Code(s): R18.8 - Other ascites Status: Acute (3) Hepatitis C: Qualifiers: Hepatic coma status: without hepatic coma Viral hepatitis chronicity: unspecified Qualified Code(s): B19.20 - Unspecified viral hepatitis C without hepatic coma Code(s): B19.20 - Unspecified viral hepatitis C without hepatic coma Status: Acute (4) Thrombocytopenia: Code(s): D69.6 - Thrombocytopenia, unspecified Status: Acute DS: Summary Hospital Course Reason for hospitalization: ABD pain Hospital Course: Patient is a 44-year-old male who initially presented to the emergency department back on 02/24/2025 with complaints of moderate abdominal pain and that his umbilical hernia was pushing more than normal he also reported intermittent cramping but denied any nausea or vomiting or testicular pain. patient reported no significant past medical history except for the fact that he was just recently diagnosed with hepatitis-C has yet to receive treatment. in the emergency department patient was initially [facility] for [facility] with hepatobiliary due to new likely hepatocellular carcinoma, cirrhosis with ascites. patient continued to board in the emergency department awaiting bed placement for the last 5 days however [facility] states they could be quite a few more days before they will have bed availability patient is currently hemodynamically stable. At that time it was discussed with ED physician and hospitalist as well as GI to admit patient to our medical services so we can start further diagnostic and imaging as well as treatment while patient waits for transfer. patient at time assessment denied any chest pain shortness a breath, nausea, vomiting but still endorsed abdominal pain mild. In the ED: Patient had underwent a CT abdomen which shows cirrhosis and multiple liver lesions concerning for malignancy which appeared to be likely tumor invasion of the right portal vein branches with small focus of the portal vein thrombus as well as esophagitis / gastritis and a moderate volume of ascites. initial vitals were unremarkable. labs did show elevated liver enzymes with a total bili of 1.7 and thrombocytopenia at 97 crisis unremarkable. 03/02/2025: Patient reported moderate to severe pain not well controlled otherwise no further complaints. Still waiting on transfer to [facility], large liver mass with invasion/extension to the right portal vein. 03/03/2025: Patient stated pain was better controlled with adjustments to pain medication. ABD is less distended today with diuretic therapy planned paracentesis and EGD today. Patient with no other complaints still waiting on transfer to [facility] no beds at this time MRI reveals a 7 cm mass highly suspicious for hepatocellular carcinoma with associated portal vein thrombosis, indicative of tumor invasion. This, coupled with ascites and a high MELD score, points to a very poor prognosis. The patient is not a candidate for curative resection or other HCC treatment modalities, including oral chemotherapy, due to poor synthetic liver function. Furthermore, despite his young age, the tumor's size likely contraindicates liver transplantation. Even treatment for hepatitis C with direct antiviral agents is debatable, given his poor prognosis. EGD was performed on 03/03 which showed nonbleeding esophageal varices and gastritis. Proceed with placement of esophageal bands. Thoracentesis fluid analysis did not reveal increased polymorphonuclears cells. Per GI, patient is safe to go home on a soft/full liquid diet for 24 more hours and have a low-sodium diet. Formal referral for [facility] hepatology services for palliative care was initiated and patient will be given the contact information and discharged at this time. Patient understands diagnosis and plan of action at this time. Status at Discharge Functional status at discharge: independent ambulation Overall status at discharge: patient is back to baseline Time Spent with Patient Time attestation: Total time spent providing and/or coordinating discharge services: 43 Exam Narrative: Non acutely distressed, anicteric. Lungs and chest: Clear. Abdomen: Distended, positive fluid wave, shifting dullness, positive umbilical hernia. No leg edema. Alert and awake, oriented x3. Const: General: cooperative, healthy appearing, comfortable, no acute distress and well developed Orientation/consciousness: oriented to person, oriented to place, oriented to time and patient oriented x3 HENMT: Head: normal to inspection, normocephalic and atraumatic Mouth: Yes Normal oral and palatal mucosa present and Yes moist mucous membranes Eyes: General: appearance normal, both eyes and all related structures Conjunctivae: conjunctivae normal Sclera: sclerae normal Pupils: Equal, round and reactive pupils present Neck: Neck: normal visual inspection, supple and no JVD Chest: Chest palpation & inspection: normal inspection of the chest Resp: Effort & Inspection: normal respiratory effort and able to speak in complete sentences Auscultation: clear to auscultation bilaterally Cardio: Jugular venous distension: no JVD Rate: regular rate Rhythm: regular rhythm Heart sounds: S1 normal heart sound present and S2 normal heart sound present GI: Inspection: distended Auscultation: normal bowel sounds Rectal Exam: deferred Other: Umbilical hernia Skin: General skin exam: normal color and no rashes or lesions noted Wounds: no wounds Neuro: General: oriented to person, oriented to place, oriented to time, patient oriented x3 and gait normal Cranial nerves: Yes Equal, round and reactive pupils present Speech: normal speech Motor exam (neuro): 5/5 motor strength present throughout Sensory Exam: normal sensation Extrem: General: normal to inspection and no clubbing, cyanosis or edema Psych: Appearance: grossly normal and well kempt Mental Status: mental status grossly normal Affect: normal affect DS: Data Data Completed and Pending Pending studies at discharge: Pending at discharge 03/03/25 15:43 Cytology [PTH] Routine Labs on day of discharge: Labs from last 24 hours 03/04/25 03/03/25 03/03/25 05:15 15:57 15:15 WBC 5.8 RBC 3.85 L Hgb 12.5 L Hct 36.8 L MCV 95.6 MCH 32.5 MCHC 34.0 RDW 13.6 Plt Count 83 L MPV 12.1 H Immature Gran % (Auto) 0.3 Neut % (Auto) 61.6 Lymph % (Auto) 26.7 [place] % (Auto) 9.0 H Eos % (Auto) 1.7 Baso % (Auto) 0.7 Lymph # (Auto) 1.54 [place] # (Auto) 0.5 Eos # (Auto) 0.1 Baso # (Auto) 0.0 Abs Immat Gran (auto) 0.02 Absolute Neuts (auto) 3.6 Absolute Nucleated RBC 0.000 Nucleated RBC % 0.0 % Immature Plt Fraction 8.3 Sodium 128 L Potassium 4.4 Chloride 93 L Carbon Dioxide 29 Anion Gap 6 BUN 8 L Creatinine 0.68 L Estim Creat Clear Calc 97 Estimated GFR > 60 Glucose 111 H Calcium 8.9 Total Bilirubin 1.5 H AST 127 H ALT 105 H Alkaline Phosphatase 126 Total Protein 8.9 H Albumin 3.6 Fluid Total Protein Pending Fluid Albumin Pending Peritoneal Source Peritoneal fluid Peritoneal Color Yellow Peritoneal Appearance Clear Peritoneal RBC < 2000 Periton Nuc Cells 269 Periton Neutrophils 1 Periton Lymphocytes 23 Peritoneal Monocytes 75 Periton Mesothelial 1 Discharge Plan Discharge Attending physician on discharge: Sofia Thompson Consulting providers: Hussain Cowan; Jena Monroe; Brian Fang Discharging Clinician: Brian Fang Anticipated Discharge Date/Time: 03/04/25 13:11 Patient Disposition: Home Activity: as tolerated Diet: low sodium and other - see discharge instructions Discharge Instructions: Follow a soft/full liquid diet for 24 more hours and then have a low-sodium diet per Dr. Daley, Gastrointestinal MD. Discharge disposition: Home Take medications as prescribed Monitor blood pressures Take caution while standing, rising, or moving Change positions slowly taking a break between each position change If you standing feel dizzy sit back down and take a break Encouraged to continue with yearly vaccinations Return to the emergency department if he developed sudden shortness of breath, chest pain, nausea, vomiting, upset stomach or intractable diarrhea Return to the emergency department if you develop fever greater than 101.5 Follow-up with the primary care physician within 1-2 weeks Dietary instructions: Continue a soft/full liquid diet for the next 24 hours then continue on a low-sodium diet after that. Thank you for [facility] for your healthcare needs Patient Language: Sinhala Stand Alone Forms: General Discharge Information Follow-up/Referrals: PHYSICIAN,FROZEN PIE MAKER [Primary Care Provider] - Discharge Medications: New oxycodone 5 mg Tablet 5 mg PO Q6HR Qty: 10 0RF furosemide [Lasix] 40 mg tablet 40 mg PO DAILY Qty: 30 0RF spironolactone 100 mg tablet 100 mg PO DAILY Qty: 30 0RF Continued omeprazole 20 mg tablet,disintegrat, delay rel 20 mg PO DAILY Patient Comments: Takes over the counter and takes irregularly. Date of admission: 02/28/25 06:56 Primary Care Provider: PHYSICIAN,FROZEN PIE MAKER Admitting Provider: Randi Hill Attending physician on admission: Randi Hill Condition: Stable Quality VTE Prophylaxis VTE prophylaxis: mechanical ordered
[2025-03-05 16:08] LABS: Albumin, Body Fluid 0.4 g/dL (Not Estab.)
== END 2025-03-04 15:30 | disposition home or self-care (01) | DRG 435 ==
LOC: ANHED 02-26 11:39 → ANH3MEDSUR 02-28 10:10
PROVIDERS: Internal Medicine Gastroenterology; Nurse Practitioner Family; Student in an Organized Health Care Education/Training Program; Admitting Provider General Practice; Emergency Provider Nurse Practitioner Family; Visit Provider Physician Assistant
PROC: 0DJ08ZZ Inspection of Upper Intestinal Tract, Via Natural or Artificial Opening Endoscopic (ICD-10-PCS; principal; 2025-03-03 13:00)
DX: C22.0 Liver cell carcinoma (principal); I81 Portal vein thrombosis; I85.00 Esophageal varices without bleeding; I85.10 Secondary esophageal varices without bleeding; K70.31 Alcoholic cirrhosis of liver with ascites; B19.20 Unspecified viral hepatitis C without hepatic coma; D69.6 Thrombocytopenia, unspecified; F10.10 Alcohol abuse, uncomplicated; F19.10 Other psychoactive substance abuse, uncomplicated; F17.210 Nicotine dependence, cigarettes, uncomplicated; K29.30 Chronic superficial gastritis without bleeding
CPT/HCPCS: 36415; 49083; 74177; 74183; 80053; 81003; 82042; 82105; 82248; 82677; 84157; 84702; 85025; 85055; 85610; 85730; 86336; 86803; 87522; 87902; 88108; 88305; 89051; 93978; 96374; 96375; 99285; A9270; A9577; J1171; J1885; J2003; J2270; J2704; J7120; Q9967